=== PATIENT | male | born 1960 | race Caucasian/White ===

== ENCOUNTER 2020-04-05 23:52 | Inpatient (IN) | payer OTHER ==
--- NOTE | 2020-04-06 00:45 | PDOC ---
History of Present Illness - General Chief Complaint: Weakness Stated Complaint: SEIZURE Time Seen by Provider: 04/06/20 00:36 History Source: EMS, Family Exam Limitations: Intoxication - History of Present Illness Initial Comments: 04/06/20 00:45 Sanchez Ruiz is a 59M with PMH EtOH use disorder c/b hepatic disease, ? history of epilepsy, HTN, BIBA after being found down in the street. Patient is intoxicated and sleeping deeply at the time of the examination, unable to get PMH. Daughter at bedside, reports she has been estranged from her father for some time, but received a call that he was found down and came with him to the ED. Per daughter, patient has a longtime history of alcohol use with related liver disease, HTN, and possible history of epilepsy vs. withdrawal seizures. Last night saw him drinking beer alone in the park, helped him to get home. Today by standers reported patient was found down on the road acutely intoxicated, unwitnessed fall, EMS called to bring to ED for evaluation. Past History - Medical History Allergies/Adverse Reactions: Allergies Allergy/AdvReac Type Severity Reaction Status Date / Time No Known Allergies Allergy Verified 04/06/20 00:16 Home Medications: Ambulatory Orders NK [No Known Home Medication] 04/06/20 - Psycho-Social/Smoking History Smoking History: Never smoked Information on smoking cessation initiated: No - Substance Abuse Hx (Audit-C & DAST Scrn) How often the patient has a drink containing alcohol: Never Score: In Men: 4 or > Positive; In Women: 3 or > Positive: 0 Screen Result (Pos requires Nsg. Audit-10AR): Negative In the last yr the pt used illegal drug/Rx for NonMed reason: No Score: Yes response is considered Positive: 0 Screen Result (Positive result requires Nsg. DAST-10): Negative Review of Systems - Review of Systems Able to Perform ROS?: No (intoxicated) *Physical Exam - Vital Signs Last Vital Signs Temp Pulse Resp BP Pulse Ox 97.5 F L 81 19 102/78 96 04/06/20 00:00 04/06/20 00:00 04/06/20 00:00 04/06/20 00:00 04/06/20 00:00 - Physical Exam General Appearance: Yes: Nourished, Appropriately Dressed, Disheveled, Alcohol on Breath, Intoxicated, Obese, Other (sleeping in bed but periodically awakens and is belligerent) HEENT: positive: EOMI, DUANE, Symmetrical, Pharynx Normal, Other (NCAT). negative: Scleral Icterus (R), Scleral Icterus (L), Pharyngeal Erythema, Tonsillar Exudate, Tonsillar Erythema Neck: positive: Normal Thyroid, Supple. negative: Tender, Rigid, Decreased range of motion, Lymphadenopathy (R), Lymphadenopathy (L), Tender lateral, Tender midline Respiratory/Chest: positive: Lungs Clear, Normal Breath Sounds. negative: Chest Tender, Respiratory Distress, Accessory Muscle Use, Decreased Breath Sounds, Crackles, Rales, Rhonchi, Stridor, Wheezing Cardiovascular: positive: Regular Rhythm, Regular Rate. negative: Murmur Gastrointestinal/Abdominal: positive: Normal Bowel Sounds, Soft, Protuberent. negative: Tender, Organomegaly, Pulsatile Mass, Guarding, Rebound, Hernia Musculoskeletal: positive: Normal Inspection. negative: CVA Tenderness, Decreased Range of Motion, Vertebral Tenderness Extremity: positive: Normal Capillary Refill, Normal Inspection, Normal Range of Motion, Pelvis Stable. negative: Tender, Pedal Edema, Swelling, Calf Tenderness Integumentary: positive: Normal Color, Dry, Warm, Other (no external evidence of injury, bony deformity, or bruising) Neurologic: positive: Respond to painful stimul ED Treatment Course - LABORATORY CBC & Chemistry Diagram: 04/06/20 01:32 04/06/20 01:32 - RADIOLOGY Radiograph Interpretation: Dilan Sequeira MD wrote on Apr 06, 2020 at 04:41 AM: Referring Physician: SOUTH KATZ Patient Name: DANIELA TREVINO THIS IS A PRELIMINARY REPORT DATE OF SERVICE: 2020-04-06 03:47:40 IMAGES: [id number] EXAM: CERVICAL SPINE CT W/O CONTR HISTORY: Trauma COMPARISON: None. FINDINGS: There is no fracture, subluxation, prevertebral soft tissue swelling or significant degenerative changes. The lung apices are clear. IMPRESSION: No fracture. Dilan Sequeira MD wrote on Apr 06, 2020 at 05:09 AM: Referring Physician: SOUTH KATZ Patient Name: DANIELA TREVINO THIS IS A PRELIMINARY REPORT DATE OF SERVICE: 2020-04-06 03:52:58 IMAGES: [id number] EXAM: HEAD CT WITHOUT CONTRAST HISTORY: Trauma COMPARISON: None. FINDINGS: Evaluation limited in that the lower third of the brain in this skull base were not imaged secondary to patient combativeness. The ventricular system is midline and nondilated. The sulcal pattern is normal for the patient's age. There is no bleed, mass, extra-axial fluid collection or mass effect. No skull fracture or skull lesion is identified. The mastoid air cells are clear. There is mild bilateral ethmoid and left sphenoid sinus mucosal thickening without sinus air- fluid levels. IMPRESSION: Limited evaluation without evidence of acute pathology. Recommend reimaging the lower portion of the brain if clinically feasible. Dilan Sequeira MD wrote on Apr 06, 2020 at 05:40 AM: Referring Physician: SOUTH KATZ Patient Name: DANIELA TREVINO THIS IS A PRELIMINARY REPORT DATE OF SERVICE: 2020-04-06 05:20:25 IMAGES: [id number] EXAM: HEAD CT WITHOUT CONTRAST HISTORY: Trauma COMPARISON: None. FINDINGS: The ventricular system is midline and nondilated. The sulcal pattern is normal for the patient's age. There is no bleed, mass, extra-axial fluid collection or mass effect. No skull fracture or skull lesion is identified. The mastoid air cells are clear. Diffuse mild sinus mucosal thickening is noted without sinus air-fluid levels. IMPRESSION: No acute traumatic pathology. Mild sinus disease. Medical Decision Making - Medical Decision Making 04/06/20 00:45 Patient has known history of alcohol use disorder, hepatic pathology, HTN, now presents for having been found down outside by EMS, likely EtOH-induced unwitnessed fall vs. withdrawal seizure. Patient sleeps deeply but is maintaining airway, ambulatory when awake, in NAD. Ordering CMP/CBC/CP/UA/UC/UTOX/ECG/CXR/ETOH as well as CT head and c-spine for evaluation trauma s/p unwitnessed fall. Patient is clinically intoxicated at this time, will continue to monitor in ED with telemetry, will need admission to telemetry for unwitnessed fall and possible seizure. Daughter at bedside but estranged, patient lives alone, unsafe to be discharged home without evaluation. 04/06/20 01:44 Labs notable for: - Na 127, likely 2/2 daily ETOH/beer consumption, will replete with banana bag - EtOH 327, consistent with alcohol intoxication - remaining CMP WNL, no transaminitis - CP WNL ECG NSR with RBBB, HR 76, QTc 483, ? LAURA III Patient intermittently wakes up and is combative, then falls back asleep. Getting CT now 04/06/20 06:[address] head and c-spine. CT c-spine no fracture. CT head unable to visualize lower portions of brain due to patient movement in CT, recommends redo. Second CT head patient compliant with exam, no acute pathology noted on CT read. Contacting admitting team for tele admit for hyponatremia, reported seizure activity, and unwitnessed fall, too intoxicated to describe events prior. 04/06/20 06:57 Discussed case with admitting team, admit to tele under Dr. Barron. Discharge - Discharge Information Problems reviewed: Yes Clinical Impression/Diagnosis: Unwitnessed fall, Hyponatremia Alcohol intoxication Qualifiers: Complication of substance-induced condition: uncomplicated Qualified Code(s): F 10.920 - Alcohol use, unspecified with intoxication, uncomplicated Condition: Fair - Admission Yes - Follow up/Referral - Patient Discharge Instructions - Post Discharge Activity
--- NOTE | 2020-04-06 00:57 | PDOC ---
Documentation entered by Zuleyka Au SCRIBE, acting as scribe for Shireen Pedersen MD. Shireen Pedersen MD: This documentation has been prepared by the Talia daniels Sydney, SCRIBE, under my direction and personally reviewed by me in its entirety. I confirm that the documentation accurately reflects all work, treatment, procedures, and medical decision making performed by me. Attending Attestation - Resident Resident Name: Mauricio Arias - ED Attending Attestation I have performed the following: I have examined & evaluated the patient, The case was reviewed & discussed with the resident, I agree w/resident's findings & plan, Exceptions are as noted - HPI HPI: 04/06/20 01:03 Patient is a 59 year old male with a significant past medical history of alcoholism, lymphoma, chronic liver failure who presents to the ED via EMS with altered mental status. HPI is limited secondary to the patients present mental baseline. As per patients daughter, he has long-standing alcoholism and has recently been residing [facility], where she has had minimal contact with her father. She reports seeing the patient last night after he had reportedly been drinking all day. Daughter notes she received a call from her sister, stating the patient was found on the ground at a nearby park, prompting the request for EMS. Daughter reports he has had alcohol-related seizures in the past. Allergies: NKDA - Physicial Exam PE: 04/06/20 00:56 GENERAL: Well-appearing, well-nourished. No apparent distress. HEENT: Normocephalic, atraumatic. PERRL, EOM intact. CARDIOVASCULAR: Normal S1, S2. Regular rate and rhythm. PULMONARY: Clear to auscultation bilaterally. ABDOMEN: + turgid belly Soft, non-tender. EXTREMITIES: +bilateral pedal edema Normal ROM in all four extremities. SKIN: Warm, dry. No rash NEUROLOGICAL: + responsive to sternal rubs No focal neurological deficits - Medical Decision Making 04/06/20 01:10 this 59 yo male BIBA after being found unresponsive on the ground family member states he has long h/o alcoholism,liver problems and lymphoma plan ct scan head,c spine, ekg,etoh level, drug screen, cbc,comp, Discharge - Discharge Information Problems reviewed: Yes Clinical Impression/Diagnosis: Alcohol intoxication, Unwitnessed fall, Hyponatremia Condition: Improved Disposition: I.P. ALCOHOL/SUBS ABUSE REHAB - Follow up/Referral - Patient Discharge Instructions - Post Discharge Activity
[2020-04-06 01:44] LABS: BASO % 0.9 % (0-2.0); EOS % 6.9 % (0-4.5); HEMOGLOBIN 12.9 GM/dL (11.7-16.9); LYMPH % 48.3 % (8-40); MCH 32.2 pg (25.7-33.7); MCHC 34.8 g/dl (32.0-35.9); MEAN CELL VOLUME 92.4 fl (80-96); MEAN PLT VOLUME 6.9 fl (7.5-11.1); MONO % 6.6 % (3.8-10.2); NEUT % 37.3 % (42.8-82.8); PLATELET COUNT 223 K/MM3 (134-434); RBC 4.01 M/mm3 (4.00-5.60); RDW 13.7 % (11.9-15.9); WHITE BLOOD COUNT 6.3 K/mm3 (4.0-10.0)
[2020-04-06 02:06] LABS: INR 0.97 (0.83-1.09); PROTHROMBIN TIME (PATIENT) 11.5 SEC (9.7-13.0)
[2020-04-06 02:09] LABS: ACTIVATED PTT 30.9 SECONDS (25.2-36.5)
[2020-04-06 02:18] LABS: ALBUMIN 3.6 g/dl (3.4-5.0); BILIRUBIN,TOTAL 0.3 mg/dL (0.2-1); POTASSIUM 3.7 mmol/L (3.5-5.1)
[2020-04-06] MEDS ORDERED: FOLIC ACID INJECTION - 1 MG, THIAMINE HCL 100 MG, MULTIVIT INJECTION ADULT 10 ML in SOD... IVPB ONE (04:43)
--- NOTE | 2020-04-06 07:26 | HP ---
CHIEF COMPLAINT: loss of consciousness PCP: none HISTORY OF PRESENT ILLNESS: Pt is a 59 y/o male with ETOH use disorder with hx of seizures (years ago, not on meds), HTN, and ?BPH who was brought into the ED after being found on the ground in a park. He does not remember the events leading up to this, but he did state he drank more than his usual amount of beers yesterday. He did not have a particular reason why, though. He normally drinks a 6 pack daily, but he does not know how much he drank yesterday. He complains of focused right frontal/temporal head pain and shakiness. He also complains of central abdominal pain, and says he feels constipated. He denies auditory or visual hallucinations, fever, chills, dizziness, chest pain, shortness of breath, nausea, vomiting, and dysuria. History is somewhat limited as pt is intermittently cooperative. ER course was notable for: (1) CT head and c-spine showed no acute processes (2) Na 127, ETOH 325 (3) banana bag PAST MEDICAL HISTORY: ETOH use disorder with hx of seizures PAST SURGICAL HISTORY: none Social History: Smokinppd, unknown number of years Alcohol: 6 pack beer, daily Drugs: denies Family History: unable to obtain Allergies No Known Allergies Allergy (Verified 04/06/20 00:16) HOME MEDICATIONS: ?BPH meds REVIEW OF SYSTEMS see HPI PHYSICAL EXAMINATION Vital Signs - 24 hr 04/06/20 04/06/20 00:00 05:51 Temperature 97.5 F L Pulse Rate 81 Pulse Rate [ 86 Left] Respiratory 19 20 Rate Blood Pressure 102/78 Blood Pressure 104/99 [Right Arm] O2 Sat by Pulse 96 98 Oximetry (%) GENERAL: A&Ox3, in no acute distress. HEAD: Normal with no signs of trauma. EYES: PERRL, EOMI, sclera anicteric. EARS, NOSE, THROAT: Ears normal, nares patent, moist mucous membranes. NECK: Normal range of motion. LUNGS: B/l diffuse wheezing, no crackles. HEART: RRR, no murmur. ABDOMEN: Distended, NBS, mildly tender to palpation mid abdomen. MUSCULOSKELETAL: Normal range of motion at all joints. UPPER EXTREMITIES: Warm, well-perfused. No peripheral edema. LOWER EXTREMITIES: Warm, well-perfused. +1 pitting edema b/l feet. NEUROLOGICAL: Cranial nerves II-XII intact. Normal speech. PSYCHIATRIC: Intermittently cooperative. Good eye contact. Labile mood. SKIN: Warm, dry, normal turgor. Laboratory Results - last 24 hr 04/06/20 04/06/20 04/06/20 01:32 01:32 01:32 WBC 6.3 RBC 4.01 Hgb 12.9 Hct 37.0 MCV 92.4 MCH 32.2 MCHC 34.8 RDW 13.7 Plt Count 223 MPV 6.9 L Absolute Neuts (auto) 2.3 Neutrophils % 37.3 L Lymphocytes % 48.3 H Monocytes % 6.6 Eosinophils % 6.9 H Basophils % 0.9 Nucleated RBC % 0 PT with INR 11.50 INR 0.97 PTT (Actin FS) 30.9 Sodium 127 L Potassium 3.7 Chloride 95 L Carbon Dioxide 20 L Anion Gap 12 BUN 9.9 Creatinine 1.0 Est GFR (CKD-EPI)AfAm 95.06 Est GFR (CKD-EPI)NonAf 82.02 Random Glucose 121 H Calcium 8.0 L Phosphorus 3.9 Magnesium 2.2 Total Bilirubin 0.3 AST 24 ALT 26 Alkaline Phosphatase 98 Creatine Kinase 270 Creatine Kinase Index 0.7 CK-MB (CK-2) 1.9 Troponin I < 0.02 B-Natriuretic Peptide 44.9 Total Protein 7.0 Albumin 3.6 Lipase 140 Alcohol, Quantitative 325 H ASSESSMENT/PLAN: Pt is a 59 y/o male with ETOH use disorder with hx of seizures (years ago, not on meds), ?hepatic pathology, HTN, and ?BPH who was brought into the ED after being found on the ground [place] a park. Pt is admitted for loss of consciousness likely 2/2 ETOH intoxication. #loss of consciousness 2/2 acute ETOH intoxication -syncope from hypotension after dehydration with ETOH use or cardiac cause vs ETOH-related seizure vs unlikely CVA -ETOH level 325 -CIWA- 2 -[facility] detox protocol -CT head and c-spine negative for acute processes -EKG-RBBB, QTc 483, possible inferior infarct, troponin negative x1 -repeat trop -continue IVF -diet after bedside swallow -cardiology consult -echo -carotid dopplers #moderate hyponatremia likely 2/2 chronic ETOH use (?beer potomania) -likely chronic hyponatremia -Na 127 -no KENIA -avoid over-correcting more than 6 points in 24 hours because of risk of osmotic demyelination syndrome -being given banana bag -will switch to NS after banana bag x1 -thiamine to avoid Wernicke's encephalopathy -folate -MVI -nephrology consult -poor f/u- will order A1C, lipid panel, TSH, hep panel, and HIV (if consents) #constipation -Miralax daily #wheezing likely 2/2 COPD from tobacco use -CXR does not show anything acute, shows cardiomegaly -pt does not complain of pulm symptoms -can give albuterol if pt does begin to be symptomatic -needs counseling on cessation once sober -consider pulm referral on discharge #unknown hepatic pathology -possibly cirrhosis? -LFTs normal -consider liver U/S -may need outpatient follow up depending on U/S or if labs worsen #HTN -unsure medication pt takes -normotensive at this time #?BPH -pt states takes urinary meds -reconcile meds and restart as needed, has good urine output at this time DVT Ppx Lovenox FEN NS 125mL/hr monitor Na in afternoon regular diet after bedside swallow eval dispo med/surg FULL CODE I tried to reconcile meds, but pt cannot state what pharmacy he uses. Family Medical History Family History: Unable to Obtain Visit type - Emergency Visit Emergency Visit: Yes ED Registration Date: 04/06/20 Care time: The patient presented to the Emergency Department on the above date and was hospitalized for further evaluation of their emergent condition. - New Patient This patient is new to me today: Yes Date on this admission: 04/06/20 - Critical Care Critical Care patient: No ATTENDING PHYSICIAN STATEMENT I saw and evaluated the patient. I reviewed the resident's note and discussed the case with the resident. I agree with the resident's findings and plan as documented. SUBJECTIVE: OBJECTIVE: ASSESSMENT AND PLAN:
[2020-04-06 08:55] LABS: ALK PHOS 100 U/L (45-117); ANION GAP 14 MMOL/L (8-16); BLOOD UREA NITROGEN 10.5 mg/dL (7-18); CALCIUM 8.1 mg/dL (8.5-10.1); CHLORIDE 96 mmol/L (98-107); CO2 17 mmol/L (21-32); CREATININE 1.1 mg/dL (0.55-1.3); GLUCOSE,RANDOM 118 mg/dL (74-106); LIPASE 122 U/L (73-393); MAGNESIUM 2.1 mg/dL (1.8-2.4); SGOT/AST 28 U/L (15-37); SGPT/ALT 27 U/L (13-61); SODIUM 128 mmol/L (136-145)
--- NOTE | 2020-04-06 09:10 | EKG ---
Test Reason : Blood Pressure : / mmHG Vent. Rate : 076 BPM Atrial Rate : 076 BPM P-R Int : 152 ms QRS Dur : 168 ms QT Int : 430 ms P-R-T Axes : 045 067 029 degrees QTc Int : 483 ms NORMAL SINUS RHYTHM RIGHT BUNDLE BRANCH BLOCK Possible inferior infarct ABNORMAL ECG NO PREVIOUS ECGS AVAILABLE Confirmed by MD JOSE, SHEILA ([id number]) on 04/06/2020 9:10:22 AM Referred By: Confirmed By:SHEILA GARCIA MD
[2020-04-06 09:20] VITALS: BMI 28.3
[2020-04-06] MEDS ORDERED: POLYETHYLENE GLYCOL 3350 119 GM BTL PO SCH (10:00)
[2020-04-06] MEDS ORDERED: ENOXAPARIN NA (PORCINE) 40 MG/0.4 ML DISP.SYRIN SQ SCH (10:00)
[2020-04-06 10:37] LABS: PH,URINE 5.5 (5.0-8.0); URINE APPEARANCE CLEAR; URINE BILIRUBIN NEGATIVE (NEGATIVE); URINE COLOR YELLOW; URINE GLUCOSE (UA) NEGATIVE (NEGATIVE); URINE KETONE NEGATIVE (NEGATIVE); URINE LEUK ESTERASE NEGATIVE (NEGATIVE); URINE NITRITE NEGATIVE (NEGATIVE); URINE PROTEIN NEGATIVE (NEGATIVE); URINE UROBILINOGEN 0.2 mg/dL (0.2-1.0)
[2020-04-06 10:39] LABS: COCAINE, UR NEGATIVE ng/ml (CUTOFF=300); OPIATES, URI NEGATIVE ng/ml (CUTOFF=300); PHENCYCLIDINE,URINE NEGATIVE ng/ml (CUTOFF=25)
[2020-04-06] MEDS ORDERED: MULTIVITAMINS (DAILY MVI) TABLET (FP) ONE (10:40)
[2020-04-06] MEDS ORDERED: FOLIC ACID 1 MG TABLET (FP) ONE (10:41)
[2020-04-06] MEDS ORDERED: THIAMINE HCL 200 MG/2 ML VIAL ONE (10:41)
[2020-04-06] MEDS ORDERED: ENOXAPARIN NA (PORCINE) 40 MG/0.4 ML DISP.SYRIN SQ ONE (10:41)
[2020-04-06 10:47] LABS: METHADONE, UR NEGATIVE ng/ml (CUTOFF=300); URINE AMPHETAMINES NEGATIVE ng/ml (CUTOFF=500); URINE BARBITURATES NEGATIVE ng/ml (CUTOFF=200); URINE BENZODIAZEPINES NEGATIVE ng/ml (CUTOFF=200)
[2020-04-06] MEDS ORDERED: chlordiazePOXIDE HCL 10 MG CAPSULE PO PRN ×2 (11:33→14:31)
[2020-04-06] MEDS ORDERED: PANTOPRAZOLE SODIUM 40 MG VIAL IVPUSH SCH (11:45)
--- NOTE | 2020-04-06 12:38 | CON.CARD ---
Consult Consult Specialty:: Cardiology Referred by:: Beatrice Reason for Consultation:: Syncope - History of Present Illness Chief Complaint: Found on the ground by EMS. History of Present Illness: The patient is a 59-year-old man, smoker, alcoholic, liver disease, lymphoma, who was found on the floor intoxicated and brought to the emergency room. The patient is currently waiting for an echocardiogram. He is sitting comfortably on the wheelchair. Denied chest pains or shortness of breath. No palpitations. Also denied fever, chills, cough, GI problems. No clinical evidence of coronavirus infection. The patient had no recollections of the event. He just remember drinking a great deal of alcohol. He admitted to 12 cans of beer Prior to passing out. - History Source History Provided By: Patient, Medical Record Limitations to Obtaining History: Intoxication - Past Medical History Cardio/Vascular: Yes: HTN - Alcohol/Substance Use Hx Alcohol Use: Yes Number of Drinks Daily: 12 History of Substance Use: reports: None - Smoking History Smoking history: Current every day smoker Home Medications - Allergies Allergies/Adverse Reactions: Allergies Allergy/AdvReac Type Severity Reaction Status Date / Time No Known Allergies Allergy Verified 04/06/20 00:16 - Home Medications Home Medications: Ambulatory Orders NK [No Known Home Medication] 04/06/20 Review of Systems - Review of Systems Constitutional: reports: No Symptoms Eyes: reports: No Symptoms HENT: reports: No Symptoms Neck: reports: No Symptoms Cardiovascular: reports: No Symptoms Respiratory: reports: No Symptoms Gastrointestinal: reports: No Symptoms Genitourinary: reports: No Symptoms Breasts: reports: No Symptoms Reported Musculoskeletal: reports: No Symptoms Integumentary: reports: No Symptoms Neurological: reports: No Symptoms Endocrine: reports: No Symptoms Hematology/Lymphatic: reports: No Symptoms Psychiatric: reports: No Symptoms Vital Signs: Vital Signs Temperature 97.9 F 04/06/20 11:24 Pulse Rate 79 04/06/20 11:24 Respiratory Rate 18 04/06/20 11:24 Blood Pressure 130/82 04/06/20 11:24 O2 Sat by Pulse Oximetry (%) 96 04/06/20 11:24 Constitutional: Yes: Well Nourished, No Distress, Calm Eyes: Yes: WNL, Conjunctiva Clear, EOM Intact HENT: Yes: WNL, Atraumatic, Normocephalic Neck: Yes: WNL, Supple, Trachea Midline Respiratory: Yes: WNL, Regular, CTA Bilaterally Gastrointestinal: Yes: WNL, Normal Bowel Sounds, Soft Renal/: Yes: WNL Cardiovascular: Yes: WNL, Regular Rate and Rhythm JVD: No Carotid Bruit: No PMI: Non-Displaced Heart Sounds: Yes: S1, S2 Murmur: Yes: Systolic Murmur, Grade 2 Musculoskeletal: Yes: WNL Extremities: Yes: WNL Edema: No Peripheral Pulses WNL: Yes Integumentary: Yes: WNL, Tenting Neurological: Yes: WNL, Alert, Oriented ...Motor Strength: WNL Psychiatric: Yes: WNL, Alert, Oriented - Other Data Labs, Other Data: CBC, BMP 04/06/20 01:32 04/06/20 01:32 INR, PTT INR 0.97 (0.83-1.09) 04/06/20 01:32 Troponin, BNP 04/06/20 01:32 Troponin I < 0.02 B-Natriuretic Peptide 44.0 Troponin, BNP 04/06/20 01:32 Troponin I < 0.02 B-Natriuretic Peptide 44.0 Assessment/Plan The patient is a 59-year-old man, smoker, alcoholic, liver disease, lymphoma, who was found on the floor intoxicated and brought to the emergency room. The patient is currently waiting for an echocardiogram. He is sitting comfortably on the wheelchair. Denied chest pains or shortness of breath. No palpitations. Also denied fever, chills, cough, GI problems. No clinical evidence of coronavirus infection. The patient had no recollections of the event. He just remember drinking a great deal of alcohol. He admitted to 12 cans of beer Prior to passing out. There is no evidence of ischemia nor acute coronary syndrome. No acute ECG changes. The patient is in sinus rhythm. No CHF. Echocardiogram is pending. No need for cardiac monitoring in this setting. The patient was simply intoxicated from alcohol. He is stable and symptom-free at the moment. Continue home medications. We will follow echo results. We will decide on further work-up once the echo findings are available. Watch for alcohol withdrawal.
[2020-04-06] MEDS ORDERED: chlordiazePOXIDE HCL 25 MG CAPSULE PO SCH (13:00)
[2020-04-06] MEDS ORDERED: SODIUM CHLORIDE 1,000 ML IV SCH (13:00)
--- NOTE | 2020-04-06 13:25 | ECHO ---
Version: 1 Name: EVA STANLEY Exam: Adult Echocardiogram Study Date: 04/06/2020, 12:40 PM Age: 59 Years MMode/2D Measurements & Calculations IVSd: 1.00 cm LVIDs: 3.6 cm LVIDd: 5.6 cm LVPWd: 0.95 cm LAV (MOD-bp): 56.0 ml ACS: 1.95 cm Ao root diam: 3.3 cm LVOT diam: 2.29 cm LA dimension: 3.7 cm Doppler Measurements & Calculations MV E max sergio: 72.6 cm/sec Med E/e': 12.6 MV A max sergio: 78.5 cm/sec Med Peak E' Sergio: 5.8 cm/sec MV E/A: 0.92 Lat E/e': 5.8 Lat Peak E' Sergio: 12.6 cm/sec MR max P.8 mmHg Ao max P.9 mmHg FREDRICK(I,D): 3.1 cm Ao mean P.7 mmHg LV V1 mean: 58.7 cm/sec Ao V2 max: 131.7 cm/sec LV V1 mean P.55 mmHg PI end-d sergio: 111.3 cm/sec TR max sergio: 246.6 cm/sec TR max P.3 mmHg Left Ventricle The left ventricular size, thickness and function are normal. Ejection Fraction = 65%. The transmitr al spectral Doppler flow pattern is suggestive of impaired LV relaxation. Right Ventricle The right ventricle is normal in size and function. Atria Normal left and right atrial size and function. Mitral Valve The mitral valve is grossly normal. There is mild mitral regurgitation. Tricuspid Valve The tricuspid valve is normal. There is mild tricuspid regurgitation. Aortic Valve The aortic valve is normal in structure and function. No aortic regurgitation is present. Pulmonic Valve The pulmonic valve is not well seen, but is grossly normal. Great Vessels The aortic root is normal size. Normal aortic arch, descending and ascending aorta. Pericardium/Pleura There is no pericardial effusion. Summary Statements The left ventricular size, thickness and function are normal Ejection Fraction = 65%. The transmitral spectral Doppler flow pattern is suggestive of impaired LV relaxation. The right ventricle is normal in size and function. Normal left and right atrial size and function. The mitral valve is grossly normal. There is mild mitral regurgitation. The tricuspid valve is normal. There is mild tricuspid regurgitation. The aortic valve is normal in structure and function. No aortic regurgitation is present. The pulmonic valve is not well seen, but is grossly normal. The aortic root is normal size. Normal aortic arch, descending and ascending aorta There is no pericardial effusion. Dillon Head 04/06/2020, 1:25 PM Ordering Physician: Jennifer Rogers Referring Physician: JENNFIER ROGERS Performed By: Jenny Heredia
--- NOTE | 2020-04-06 13:29 | CONSULT ---
Consult Consult Specialty:: Nephrology Reason for Consultation:: hyponatremia - History of Present Illness Chief Complaint: found in the ground in the park History of Present Illness: Pt is a 59 year old male with pmhx of etoh abuse, htn, seizure and bph who was brought in after being found on the ground in the park. He has been actively drinking. I was called to evaluate him for hyponatremia. He is hungry and has appetite. He is making urine. He drinks natacha beer. He denies fevers or chills. He is now awake and alert. - History Source History Provided By: Patient - Past Medical History Cardio/Vascular: Yes: HTN - Alcohol/Substance Use Hx Alcohol Use: Yes Number of Drinks Daily: 12 History of Substance Use: reports: None - Smoking History Smoking history: Never smoked Home Medications - Allergies Allergies/Adverse Reactions: Allergies Allergy/AdvReac Type Severity Reaction Status Date / Time No Known Allergies Allergy Verified 04/06/20 00:16 - Home Medications Home Medications: Ambulatory Orders NK [No Known Home Medication] 04/06/20 Family Medical History Family History: Denies Review of Systems - Review of Systems Constitutional: reports: No Symptoms Eyes: reports: No Symptoms HENT: reports: No Symptoms Neck: reports: No Symptoms Cardiovascular: reports: No Symptoms Respiratory: reports: No Symptoms Gastrointestinal: reports: No Symptoms Genitourinary: reports: No Symptoms Musculoskeletal: reports: No Symptoms Integumentary: reports: No Symptoms Neurological: reports: No Symptoms Endocrine: reports: No Symptoms Hematology/Lymphatic: reports: No Symptoms Psychiatric: reports: No Symptoms Physical Exam Vital Signs: Vital Signs Temperature 97.9 F 04/06/20 11:24 Pulse Rate 79 04/06/20 11:24 Respiratory Rate 18 04/06/20 11:24 Blood Pressure 130/82 04/06/20 11:24 O2 Sat by Pulse Oximetry (%) 96 04/06/20 11:24 Constitutional: Yes: Calm Eyes: Yes: Conjunctiva Clear HENT: Yes: Atraumatic Neck: Yes: Supple Cardiovascular: Yes: S1, S2 Respiratory: Yes: CTA Bilaterally Gastrointestinal: Yes: Soft Renal/: Yes: WNL Musculoskeletal: Yes: WNL Edema: No Neurological: Yes: Oriented Psychiatric: Yes: Oriented Labs: CBC, BMP 04/06/20 01:32 04/06/20 01:32 Imaging - Results Chest X-ray: Report Reviewed Problem List - Problems (1) Alcohol intoxication Code(s): F10.929 - ALCOHOL USE, UNSPECIFIED WITH INTOXICATION, UNSPECIFIED Qualifiers: Complication of substance-induced condition: uncomplicated Qualified Code(s): F10.920 - Alcohol use, unspecified with intoxication, uncomplicated (2) Hyponatremia Code(s): E87.1 - HYPO-OSMOLALITY AND HYPONATREMIA Assessment/Plan Current Medications Generic Name Dose Route Start Last Admin Trade Name Freq PRN Reason Stop Dose Admin Chlordiazepoxide HCl 25 mg 04/06/20 13:00 Librium - PO 04/07/20 21:01 Q8H ANDRY Chlordiazepoxide HCl 10 mg 04/09/20 00:00 Librium - PO 04/09/20 23:59 Q12H PRN Signs/symptoms of Withdrawal Chlordiazepoxide HCl 10 mg 04/06/20 11:33 Librium - PO 04/08/20 23:59 Q8H PRN Signs/symptoms of Withdrawal Chlordiazepoxide HCl 15 mg 04/08/20 05:00 Librium - PO 04/08/20 21:01 Q8H ANDRY Chlordiazepoxide HCl 10 mg 04/09/20 05:00 Librium - PO 04/09/20 21:01 Q8H ANDRY Chlordiazepoxide HCl 10 mg 04/10/20 05:00 Librium - PO 04/10/20 05:01 ONCE ONE Enoxaparin Sodium 40 mg 04/06/20 10:00 04/06/20 10:30 Lovenox - SQ 40 mg DAILY [facility] Administration Folic Acid 1 mg 04/07/20 10:00 Folic Acid - PO DAILY [facility] Sodium Chloride 1,000 mls @ 125 mls/hr 04/06/20 13:00 Normal Saline - IV ASDIR [facility] Multivitamins/Minerals/Vitamin C 1 tab 04/07/20 10:00 Tab-A-Vit - PO DAILY [facility] Pantoprazole Sodium 40 mg 04/06/20 11:45 Protonix Iv IVPUSH DAILY [facility] Polyethylene Glycol 17 gm 04/06/20 10:00 04/06/20 10:30 Miralax (For Daily Use) - PO Not Given DAILY [facility] Thiamine HCl 200 mg 04/07/20 10:00 Vitamin B1 Injection - IVPB 04/11/20 09:59 DAILY [facility] Laboratory Tests 04/06/20 04/06/20 04/06/20 01:32 01:32 10:00 WBC 6.3 Hgb 12.9 Plt Count 223 Creatine Kinase 272 B-Natriuretic Peptide 44.0 Ur Specific [place] 1.004 L Urine Protein Negative Urine Blood Negative Alcohol, Quantitative 320.6 H Impression 1. hyponatremia 2. etoh abuse 3. htn 4. s/p fall Plan - urine sg is low, pt autocorrecting - repeat bmp to asses sodium - he has been off of fluids as he has been in testing - pt asking for food, no objection to starting diet - cont detox - will trend sodium
[2020-04-06] MEDS ORDERED: PANTOPRAZOLE SODIUM 40 MG/100 ML BAG IVPB ONE (13:32)
--- NOTE | 2020-04-06 13:53 | CONSULT ---
Consult Detox [facility] Reason for Current Admission/Consult: Alcohol use disorder, intoxication Referred by:: Dr. Rogers - History History of Present Illness: HISTORY OF PRESENT ILLNESS: Pt is a 59 y/o male with ETOH use disorder with hx of seizures (years ago, not on meds), HTN, and ?BPH who was brought into the ED after being found on the ground in a park. He does not remember the events leading up to this, but he did state he drank more than his usual amount of beers yesterday. He did not have a particular reason why, though. He normally drinks a 6 pack daily, but he does not know how much he drank yesterday. He complains of focused right frontal/t emporal head pain and shakiness. He also complains of central abdominal pain, and says he feels constipated. He denies auditory or visual hallucinations, fever, chills, dizziness, chest pain, shortness of breath, nausea, vomiting, and dysuria. History is somewhat limited as pt is intermittently cooperative. ER course was notable for: (1) CT head and c-spine showed no acute processes (2) Na 127, ETOH 325 (3) banana bag PAST MEDICAL HISTORY: ETOH use disorder with hx of seizures PAST SURGICAL HISTORY: none Social History: Smokinppd, unknown number of years Alcohol: 6 pack beer, daily Drugs: denies Family History: unable to obtain Pt was seen by Cardiology, notes indicate pt drank 12 beer prior to LOC. Echo pending. Pt has consult note pending from Nephrology CIWA: 2 Home Medications Medication Instructions Recorded NK [No Known Home Medication] 04/06/20 Laboratory Tests 04/06/20 04/06/20 04/06/20 01:32 01:32 01:32 WBC 6.3 RBC 4.01 Hgb 12.9 Hct 37.0 MCV 92.4 MCH 32.2 MCHC 34.8 RDW 13.7 Plt Count 223 MPV 6.9 L Absolute Neuts (auto) 2.3 Neutrophils % 37.3 L Lymphocytes % 48.3 H Monocytes % 6.6 Eosinophils % 6.9 H Basophils % 0.9 Nucleated RBC % 0 PT with INR 11.50 INR 0.97 PTT (Actin FS) 30.9 Sodium 128 L Potassium 3.7 Chloride 96 L Carbon Dioxide 17 L Anion Gap 14 BUN 10.5 Creatinine 1.1 Est GFR (CKD-EPI)AfAm 84.71 Est GFR (CKD-EPI)NonAf 73.09 Random Glucose 118 H Calcium 8.1 L Phosphorus 4.0 Magnesium 2.1 Total Bilirubin 0.3 AST 28 ALT 27 Alkaline Phosphatase 100 Creatine Kinase 272 Creatine Kinase Index Cancelled CK-MB (CK-2) Cancelled Troponin I < 0.02 B-Natriuretic Peptide 44.0 Total Protein 7.0 Albumin 3.6 Lipase 122 Urine Color Urine Appearance Urine pH Ur Specific [place] Urine Protein Urine Glucose (UA) Urine Ketones Urine Blood Urine Nitrite Urine Bilirubin Urine Urobilinogen Ur Leukocyte Esterase Opiates Screen Methadone Screen Barbiturate Screen Phencyclidine Screen Ur Amphetamines Screen MDMA (Ecstasy) Screen Benzodiazepines Screen Cocaine Screen U Marijuana (THC) Screen Alcohol, Quantitative 320.6 H 04/06/20 04/06/20 04/06/20 01:32 10:00 10:00 WBC RBC Hgb Hct MCV MCH MCHC RDW Plt Count MPV Absolute Neuts (auto) Neutrophils % Lymphocytes % Monocytes % Eosinophils % Basophils % Nucleated RBC % PT with INR INR PTT (Actin FS) Sodium Potassium Chloride Carbon Dioxide Anion Gap BUN Creatinine Est GFR (CKD-EPI)AfAm Est GFR (CKD-EPI)NonAf Random Glucose Calcium Phosphorus Magnesium Total Bilirubin AST ALT Alkaline Phosphatase Creatine Kinase Creatine Kinase Index Cancelled CK-MB (CK-2) Cancelled Troponin I B-Natriuretic Peptide Total Protein Albumin Lipase Urine Color Yellow Urine Appearance Clear Urine pH 5.5 Ur Specific [place] 1.004 L Urine Protein Negative Urine Glucose (UA) Negative Urine Ketones Negative Urine Blood Negative Urine Nitrite Negative Urine Bilirubin Negative Urine Urobilinogen 0.2 Ur Leukocyte Esterase Negative Opiates Screen Negative Methadone Screen Negative Barbiturate Screen Negative Phencyclidine Screen Negative Ur Amphetamines Screen Negative MDMA (Ecstasy) Screen Negative Benzodiazepines Screen Negative Cocaine Screen Negative U Marijuana (THC) Screen Negative Alcohol, Quantitative 04/06/20 12:00 WBC RBC Hgb Hct MCV MCH MCHC RDW Plt Count MPV Absolute Neuts (auto) Neutrophils % Lymphocytes % Monocytes % Eosinophils % Basophils % Nucleated RBC % PT with INR INR PTT (Actin FS) Sodium Potassium Chloride Carbon Dioxide Anion Gap BUN Creatinine Est GFR (CKD-EPI)AfAm Est GFR (CKD-EPI)NonAf Random Glucose Calcium Phosphorus Magnesium Total Bilirubin AST ALT Alkaline Phosphatase Creatine Kinase Creatine Kinase Index CK-MB (CK-2) Troponin I < 0.02 B-Natriuretic Peptide Total Protein Albumin Lipase Urine Color Urine Appearance Urine pH Ur Specific [place] Urine Protein Urine Glucose (UA) Urine Ketones Urine Blood Urine Nitrite Urine Bilirubin Urine Urobilinogen Ur Leukocyte Esterase Opiates Screen Methadone Screen Barbiturate Screen Phencyclidine Screen Ur Amphetamines Screen MDMA (Ecstasy) Screen Benzodiazepines Screen Cocaine Screen U Marijuana (THC) Screen Alcohol, Quantitative Home Medication List Medication Instructions Recorded Confirmed Type NK [No Known Home Medication] 04/06/20 04/06/20 History Active Medications Generic Name Dose Route Start Last Admin Trade Name Freq PRN Reason Stop Dose Admin Chlordiazepoxide HCl 25 mg 04/06/20 13:00 04/06/20 13:43 Librium - PO 04/07/20 21:01 Not Given Q8H ANDRY Chlordiazepoxide HCl 10 mg 04/09/20 00:00 Librium - PO 04/09/20 23:59 Q12H PRN Signs/symptoms of Withdrawal Chlordiazepoxide HCl 10 mg 04/06/20 11:33 Librium - PO 04/08/20 23:59 Q8H PRN Signs/symptoms of Withdrawal Chlordiazepoxide HCl 15 mg 04/08/20 05:00 Librium - PO 04/08/20 21:01 Q8H ANDRY Chlordiazepoxide HCl 10 mg 04/09/20 05:00 Librium - PO 04/09/20 21:01 Q8H ANDRY Chlordiazepoxide HCl 10 mg 04/10/20 05:00 Librium - PO 04/10/20 05:01 ONCE ONE Enoxaparin Sodium 40 mg 04/06/20 10:00 04/06/20 10:30 Lovenox - SQ 40 mg DAILY [facility] Administration Folic Acid 1 mg 04/07/20 10:00 Folic Acid - PO DAILY [facility] Multivitamins/Minerals/Vitamin C 1 tab 04/07/20 10:00 Tab-A-Vit - PO DAILY [facility] Pantoprazole Sodium 40 mg 04/06/20 11:45 04/06/20 13:42 Protonix Iv IVPUSH 40 mg DAILY [facility] Administration Polyethylene Glycol 17 gm 04/06/20 10:00 04/06/20 10:30 Miralax (For Daily Use) - PO Not Given DAILY [facility] Thiamine HCl 200 mg 04/07/20 10:00 Vitamin B1 Injection - IVPB 04/11/20 09:59 DAILY [facility] Vital Signs Temperature 98.6 F 04/06/20 13:32 Pulse Rate 70 04/06/20 13:32 Respiratory Rate 18 04/06/20 13:32 Blood Pressure 124/80 04/06/20 13:32 O2 Sat by Pulse Oximetry (%) 100 04/06/20 13:32 - History Source History Provided By: Medical Record - Alcohol/Substance Use Hx Alcohol Use: Yes - Past Medical History Cardio/Vascular: Yes: HTN Assessment Plan - Diagnosis (1) Alcohol intoxication Status: Acute Qualifiers: Complication of substance-induced condition: uncomplicated Qualified Code(s): F10.920 - Alcohol use, unspecified with intoxication, uncomplicated (2) Nicotine dependence Status: Acute Qualifiers: Nicotine product type: cigarettes Substance use status: uncomplicated Qualified Code(s): F17.210 - Nicotine dependence, cigarettes, uncomplicated - Plan Plan: 1. Pt with hx of alcohol use disorder, found down in a park, admits to drinking 12 beers prior to LOC. Workup since admission has revealed a nomral CT of head and C spine, normal troponin, mild hyponatremia 2. Nicotine dependence Plan 1. continue Librium detox protocol 2. start Nicotine patch, 21 mg daily - Medication Detox Regimen/Protocol: Librium
[2020-04-06] MEDS: NICOTINE 21 MG/24 HOURS TOPICAL PATCH TD SCH (14:54)
[2020-04-06 16:12] LABS: ALBUMIN 3.7 g/dl (3.4-5.0); BILIRUBIN,TOTAL 0.4 mg/dL (0.2-1); BLOOD UREA NITROGEN 9.2 mg/dL (7-18); CALCIUM 8.5 mg/dL (8.5-10.1); CREATININE 0.8 mg/dL (0.55-1.3); MAGNESIUM 2.3 mg/dL (1.8-2.4); PHOSPHOROUS 3.2 mg/dL (2.5-4.9); POTASSIUM 4.6 mmol/L (3.5-5.1); TOT PROT 7.3 g/dl (6.4-8.2)
[2020-04-06] MEDS ORDERED: chlordiazePOXIDE HCL 25 MG CAPSULE PO ONE (17:31)
[2020-04-06] MEDS: chlordiazePOXIDE HCL 25 MG CAPSULE PO SCH (21:12)
[2020-04-07] MEDS: chlordiazePOXIDE HCL 25 MG CAPSULE PO SCH ×3 (05:12→21:11)
[2020-04-07 08:59] LABS: BASO % 0.6 % (0-2.0); EOS % 6.4 % (0-4.5); HEMATOCRIT 38.6 % (35.4-49); HEMOGLOBIN 13.1 GM/dL (11.7-16.9); LYMPH % 21.7 % (8-40); MCH 31.1 pg (25.7-33.7); MEAN CELL VOLUME 91.6 fl (80-96); MEAN PLT VOLUME 7.3 fl (7.5-11.1); MONO % 11.2 % (3.8-10.2); NEUT % 60.1 % (42.8-82.8); PLATELET COUNT 216 K/MM3 (134-434); RBC 4.21 M/mm3 (4.00-5.60); WHITE BLOOD COUNT 6.8 K/mm3 (4.0-10.0)
[2020-04-07 09:26] LABS: ALBUMIN 3.4 g/dl (3.4-5.0); BILIRUBIN,TOTAL 0.6 mg/dL (0.2-1); BLOOD UREA NITROGEN 11.8 mg/dL (7-18); CALCIUM 8.5 mg/dL (8.5-10.1); CHOLESTEROL 204 mg/dL (50-200); CREATININE 0.9 mg/dL (0.55-1.3); HDL CHOLESTEROL 43 mg/dL (40-60); LDL CHOLESTEROL (ONLY SJRH) 122 mg/dL (5-100); MAGNESIUM 2.2 mg/dL (1.8-2.4); POTASSIUM 4.2 mmol/L (3.5-5.1); TOT PROT 6.6 g/dl (6.4-8.2); TRIGLYCERIDES 327 mg/dL (0-150)
[2020-04-07] MEDS ORDERED: FOLIC ACID 1 MG TABLET (FP) PO SCH (10:00)
[2020-04-07] MEDS ORDERED: THIAMINE HCL 200 MG/2 ML VIAL IVPB SCH (10:00)
[2020-04-07] MEDS ORDERED: MULTIVITAMINS (DAILY MVI) TABLET (FP) PO SCH (10:00)
[2020-04-07] MEDS: FOLIC ACID 1 MG TABLET (FP) PO SCH (10:58)
[2020-04-07] MEDS: MULTIVITAMINS (DAILY MVI) TABLET (FP) PO SCH (10:58)
[2020-04-07] MEDS: THIAMINE HCL 200 MG/2 ML VIAL IVPB SCH (10:59)
[2020-04-07] MEDS ORDERED: DEXTROSE 5%-WATER - 1,000 ML IV SCH (11:00)
[2020-04-07] MEDS: PANTOPRAZOLE SODIUM 40 MG VIAL IVPUSH SCH (11:00)
[2020-04-07] MEDS: ENOXAPARIN NA (PORCINE) 40 MG/0.4 ML DISP.SYRIN SQ SCH (11:01)
[2020-04-07] MEDS: NICOTINE 21 MG/24 HOURS TOPICAL PATCH TD SCH (11:03)
[2020-04-07] MEDS: POLYETHYLENE GLYCOL 3350 119 GM BTL PO SCH (11:57)
[2020-04-07] MEDS: DEXTROSE 5%-WATER - 1,000 ML IV SCH (11:58)
--- NOTE | 2020-04-07 14:05 | PN ---
Teaching Attending Note Name of Resident: Jennifer Rogers ATTENDING PHYSICIAN STATEMENT I saw and evaluated the patient. I reviewed the resident's note and discussed the case with the resident. I agree with the resident's findings and plan as documented. SUBJECTIVE: Patient seen and examined at bedside, endorses he was "taking a nap" in the park, does not remember if he actually syncopized, drank a 6 pack the night before, only takes meds at home for "blood pressure" not sure which one, admitted for volume depletion 2/2 Etoh intoxication. OBJECTIVE: GENERAL: A&Ox3, in no acute distress, answering to questions HEAD: Normal with no signs of trauma. EYES: PERRL, EOMI, sclera anicteric. EARS, NOSE, THROAT: Ears normal, nares patent, moist mucous membranes. NECK: Normal range of motion. LUNGS: B/l diffuse wheezing, no crackles. HEART: RRR, no murmur. ABDOMEN: Distended, NBS, mildly tender to palpation mid abdomen. MUSCULOSKELETAL: Normal range of motion at all joints. UPPER EXTREMITIES: Warm, well-perfused. No peripheral edema. LOWER EXTREMITIES: Warm, well-perfused. +1 pitting edema b/l feet. NEUROLOGICAL: Cranial nerves II-XII intact. Normal speech. PSYCHIATRIC: Intermittently cooperative. Good eye contact. Labile mood. SKIN: Warm, dry, normal turgor. Vital Signs (72 hours) 04/06/20 04/06/20 04/06/20 00:00 05:51 11:24 Temperature 97.5 F L 97.9 F Pulse Rate 81 Pulse Rate [ 86 79 Left] Respiratory 19 20 18 Rate Blood Pressure 102/78 Blood Pressure 104/99 130/82 [Right Arm] O2 Sat by Pulse 96 98 96 Oximetry (%) 04/06/20 04/06/20 04/06/20 13:32 16:00 16:08 Temperature 98.6 F 98.6 F Pulse Rate 75 Pulse Rate [ 70 Left] Respiratory 18 18 Rate Blood Pressure 149/83 Blood Pressure 124/80 [Right Arm] O2 Sat by Pulse 100 99 99 Oximetry (%) 04/06/20 04/06/20 04/06/20 18:00 21:00 23:00 Temperature 99.0 F 98.3 F Pulse Rate 105 H 96 H Pulse Rate [ Left] Respiratory 18 18 Rate Blood Pressure 132/79 120/64 Blood Pressure [Right Arm] O2 Sat by Pulse 98 96 96 Oximetry (%) 04/07/20 04/07/20 02:00 06:00 Temperature 98.4 F 98.0 F Pulse Rate 76 71 Pulse Rate [ Left] Respiratory 18 18 Rate Blood Pressure 100/56 L 132/88 Blood Pressure [Right Arm] O2 Sat by Pulse 96 95 Oximetry (%) Microbiology 04/06/20 10:00 Urine - Urine Clean Catch Urine Culture - Final NO GROWTH OBTAINED Laboratory Results - last 24 hr 04/06/20 04/06/20 04/06/20 10:40 15:10 15:10 WBC RBC Hgb Hct MCV MCH MCHC RDW Plt Count MPV Absolute Neuts (auto) Neutrophils % Lymphocytes % Monocytes % Eosinophils % Basophils % Nucleated RBC % Sodium 138 Potassium 4.6 Chloride 109 H Carbon Dioxide 20 L Anion Gap 10 BUN 9.2 Creatinine 0.8 Est GFR (CKD-EPI)AfAm 113.33 Est GFR (CKD-EPI)NonAf 97.78 Random Glucose 87 Hemoglobin A1c % 5.3 Calcium 8.5 Phosphorus 3.2 Magnesium 2.3 Total Bilirubin 0.4 AST 27 ALT 27 Alkaline Phosphatase 101 Total Protein 7.3 Albumin 3.7 Triglycerides Cholesterol Total LDL Cholesterol HDL Cholesterol TSH 1.11 COVID-19 ([facility]) Not detected 04/07/20 04/07/20 04/07/20 07:55 07:55 07:55 WBC 6.8 RBC 4.21 Hgb 13.1 Hct 38.6 MCV 91.6 MCH 31.1 MCHC 34.0 RDW 14.0 Plt Count 216 MPV 7.3 L Absolute Neuts (auto) 4.1 Neutrophils % 60.1 D Lymphocytes % 21.7 D Monocytes % 11.2 H Eosinophils % 6.4 H Basophils % 0.6 Nucleated RBC % 0 Sodium 140 Potassium 4.2 Chloride 109 H Carbon Dioxide 24 Anion Gap 7 L BUN 11.8 Creatinine 0.9 Est GFR (CKD-EPI)AfAm 107.97 Est GFR (CKD-EPI)NonAf 93.16 Random Glucose 95 Hemoglobin A1c % Calcium 8.5 Phosphorus 3.0 Magnesium 2.2 Total Bilirubin 0.6 AST 26 ALT 27 Alkaline Phosphatase 94 Total Protein 6.6 Albumin 3.4 Triglycerides 327 H Cholesterol 204 H Total LDL Cholesterol 122 H HDL Cholesterol 43 TSH COVID-19 ([facility]) Home Medications Medication Instructions Recorded NK [No Known Home Medication] 04/06/20 Current Medications Generic Name Dose Route Start Last Admin Trade Name Freq PRN Reason Stop Dose Admin Chlordiazepoxide HCl 10 mg 04/10/20 05:00 Librium - PO 04/10/20 05:01 ONCE ONE Chlordiazepoxide HCl 10 mg 04/09/20 00:00 Librium - PO 04/09/20 23:59 Q12H PRN Signs/symptoms of Withdrawal Chlordiazepoxide HCl 10 mg 04/06/20 14:31 Librium - PO 04/08/20 23:59 Q8H PRN Signs/symptoms of Withdrawal Chlordiazepoxide HCl 25 mg 04/06/20 21:00 04/07/20 05:12 Librium - PO 04/07/20 21:01 25 mg Q8H ANDRY Administration Chlordiazepoxide HCl 15 mg 04/08/20 05:00 Librium - PO 04/08/20 21:01 Q8H ANDRY Chlordiazepoxide HCl 10 mg 04/09/20 05:00 Librium - PO 04/09/20 21:01 Q8H ANDRY Enoxaparin Sodium 40 mg 04/07/20 10:00 04/07/20 11:01 Lovenox - SQ 40 mg DAILY [facility] Administration Folic Acid 1 mg 04/07/20 10:00 04/07/20 10:58 Folic Acid - PO 1 mg DAILY [facility] Administration Dextrose 1,000 mls @ 75 mls/hr 04/07/20 11:00 04/07/20 11:58 D5w - IV 75 mls/hr ASDIR [facility] Administration Multivitamins/Minerals/Vitamin C 1 tab 04/07/20 10:00 04/07/20 10:58 Tab-A-Vit - PO 1 tab DAILY [facility] Administration Nicotine 21 mg 04/06/20 14:00 04/07/20 11:03 Nicoderm Patch - TD 21 mg DAILY [facility] Administration Pantoprazole Sodium 40 mg 04/07/20 10:00 04/07/20 11:00 Protonix Iv IVPUSH 40 mg DAILY [facility] Administration Polyethylene Glycol 17 gm 04/07/20 10:00 04/07/20 11:57 Miralax (For Daily Use) - PO 17 gm DAILY [facility] Administration Thiamine HCl 200 mg 04/07/20 10:00 04/07/20 10:59 Vitamin B1 Injection - IVPB 04/11/20 09:59 200 mg DAILY [facility] Administration ASSESSMENT AND PLAN: 59 M Etoh abuse disorder with acute intoxication Hyponatremia 2/2 suspected Beer protomania HTN HLD Hypertriglyceridemia Suspected fatty liver v.s. liver cirrhosis Remote h/o seizures 2/2 Etoh abuse Plan: Watch for withdrawal, Librium PRN Supplement Thiamine/FA/MV Supplement PPI, counseled on Etoh cessation, PSA consult IV hydration with NS, if patient can eat start regular diet and allow Na to self-correct w/ cessation of alcohol Renal evaluation DVT ppx: Lovenox SC
--- NOTE | 2020-04-07 15:21 | PN ---
Teaching Attending Note Name of Resident: Serge Valdez ATTENDING PHYSICIAN STATEMENT I saw and evaluated the patient. I reviewed the resident's note and discussed the case with the resident. I agree with the resident's findings and plan as documented. SUBJECTIVE: Patient feels well, has no complaints OBJECTIVE: Vital Signs Period Temp Pulse Resp BP Sys/Loya Pulse Ox Last 24 Hr 98.0 F-99.0 F 71-105 18-18 100-149/56-88 95-99 Physical Exam as noted in Resident note. Supervised PE during Teaching rounds ASSESSMENT AND PLAN: 59 y/o M with HTN, HLD, ETOH abuse who was found down in a park. Found Down: Likely 2/2 ETOh intoxication, cannot rule out Seizure vs. Syncope CT head without any significant findings Librium taper for ETOH Patient reports not drinking ETOH daily, denies ever withdrawing, ever having ETOH siezures Thiamine, Folate, B12, Hyponatremia: Likely in setting of beer podomania Overcorrected Sodium overnight, give free water to patient now, with goal of 135 Continue to monitor neurological function Rest of plan as per resident note
--- NOTE | 2020-04-07 16:37 | PN ---
Progress Note, Physician History of Present Illness: Pt seen and examined a bedside. He is awake and alert. - Current Medication List Current Medications: Active Medications Chlordiazepoxide HCl (Librium -) 10 mg PO ONCE ONE Stop: 04/10/20 05:01 Chlordiazepoxide HCl (Librium -) 10 mg PO Q12H PRN PRN Reason: Signs/symptoms of Withdrawal Stop: 04/09/20 23:59 Chlordiazepoxide HCl (Librium -) 10 mg PO Q8H PRN PRN Reason: Signs/symptoms of Withdrawal Stop: 04/08/20 23:59 Chlordiazepoxide HCl (Librium -) 25 mg PO Q8H [facility] Stop: 04/07/20 21:01 Last Admin: 04/07/20 14:16 Dose: 25 mg Documented by: Chlordiazepoxide HCl (Librium -) 15 mg PO Q8H [facility] Stop: 04/08/20 21:01 Chlordiazepoxide HCl (Librium -) 10 mg PO Q8H [facility] Stop: 04/09/20 21:01 Enoxaparin Sodium (Lovenox -) 40 mg SQ DAILY [facility] Last Admin: 04/07/20 11:01 Dose: 40 mg Documented by: Folic Acid (Folic Acid -) 1 mg PO DAILY [facility] Last Admin: 04/07/20 10:58 Dose: 1 mg Documented by: Dextrose (D5w -) 1,000 mls @ 75 mls/hr IV ASDIR [facility] Last Admin: 04/07/20 11:58 Dose: 75 mls/hr Documented by: Multivitamins/Minerals/Vitamin C (Tab-A-Vit -) 1 tab PO DAILY [facility] Last Admin: 04/07/20 10:58 Dose: 1 tab Documented by: Nicotine (Nicoderm Patch -) 21 mg TD DAILY [facility] Last Admin: 04/07/20 11:03 Dose: 21 mg Documented by: Pantoprazole Sodium (Protonix Iv) 40 mg IVPUSH DAILY [facility] Last Admin: 04/07/20 11:00 Dose: 40 mg Documented by: Polyethylene Glycol (Miralax (For Daily Use) -) 17 gm PO DAILY [facility] Last Admin: 04/07/20 11:57 Dose: 17 gm Documented by: Thiamine HCl (Vitamin B1 Injection -) 200 mg IVPB DAILY [facility] Stop: 04/11/20 09:59 Last Admin: 04/07/20 10:59 Dose: 200 mg Documented by: - Objective Vital Signs: Vital Signs Temperature 98.7 F 04/07/20 14:00 Pulse Rate 81 04/07/20 14:00 Respiratory Rate 18 04/07/20 14:00 Blood Pressure 149/88 04/07/20 14:00 O2 Sat by Pulse Oximetry (%) 97 04/07/20 14:00 Constitutional: Yes: Calm Eyes: Yes: Conjunctiva Clear HENT: Yes: Atraumatic Cardiovascular: Yes: S1, S2 Respiratory: Yes: CTA Bilaterally Gastrointestinal: Yes: Soft Genitourinary: Yes: WNL Musculoskeletal: Yes: WNL Edema: No Neurological: Yes: Oriented Psychiatric: Yes: Oriented Labs: CBC, BMP 04/07/20 07:55 04/07/20 07:55 INR, PTT INR 0.97 (0.83-1.09) 04/06/20 01:32 Problem List - Problems (1) Alcohol intoxication Code(s): F10.929 - ALCOHOL USE, UNSPECIFIED WITH INTOXICATION, UNSPECIFIED Qualifiers: Complication of substance-induced condition: uncomplicated Qualified Code(s): F10.920 - Alcohol use, unspecified with intoxication, uncomplicated (2) Hyponatremia Code(s): E87.1 - HYPO-OSMOLALITY AND HYPONATREMIA Assessment/Plan Current Medications Generic Name Dose Route Start Last Admin Trade Name Freq PRN Reason Stop Dose Admin Chlordiazepoxide HCl 10 mg 04/10/20 05:00 Librium - PO 04/10/20 05:01 ONCE ONE Chlordiazepoxide HCl 10 mg 04/09/20 00:00 Librium - PO 04/09/20 23:59 Q12H PRN Signs/symptoms of Withdrawal Chlordiazepoxide HCl 10 mg 04/06/20 14:31 Librium - PO 04/08/20 23:59 Q8H PRN Signs/symptoms of Withdrawal Chlordiazepoxide HCl 25 mg 04/06/20 21:00 04/07/20 14:16 Librium - PO 04/07/20 21:01 25 mg Q8H [facility] Administration Chlordiazepoxide HCl 15 mg 04/08/20 05:00 Librium - PO 04/08/20 21:01 Q8H ANDRY Chlordiazepoxide HCl 10 mg 04/09/20 05:00 Librium - PO 04/09/20 21:01 Q8H ANDRY Enoxaparin Sodium 40 mg 04/07/20 10:00 04/07/20 11:01 Lovenox - SQ 40 mg DAILY [facility] Administration Folic Acid 1 mg 04/07/20 10:00 04/07/20 10:58 Folic Acid - PO 1 mg DAILY [facility] Administration Dextrose 1,000 mls @ 75 mls/hr 04/07/20 11:00 04/07/20 11:58 D5w - IV 75 mls/hr [facility] Administration Multivitamins/Minerals/Vitamin C 1 tab 04/07/20 10:00 04/07/20 10:58 Tab-A-Vit - PO 1 tab DAILY [facility] Administration Nicotine 21 mg 04/06/20 14:00 04/07/20 11:03 Nicoderm Patch - TD 21 mg DAILY [facility] Administration Pantoprazole Sodium 40 mg 04/07/20 10:00 04/07/20 11:00 Protonix Iv IVPUSH 40 mg DAILY [facility] Administration Polyethylene Glycol 17 gm 04/07/20 10:00 04/07/20 11:57 Miralax (For Daily Use) - PO 17 gm DAILY [facility] Administration Thiamine HCl 200 mg 04/07/20 10:00 04/07/20 10:59 Vitamin B1 Injection - IVPB 04/11/20 09:59 200 mg DAILY [facility] Administration Impression 1. hyponatremia likely beer potomania 2. etoh abuse 3. htn 4. s/p fall Plan - sodium has corrected quickly, pt autocorrected - agree with free water and d5w - cont to monito lytes - cont to monitor sodium level - discussed etoh abuse
[2020-04-07 20:17] LABS: BLOOD UREA NITROGEN 13.5 mg/dL (7-18); CALCIUM 8.6 mg/dL (8.5-10.1); CREATININE 1.2 mg/dL (0.55-1.3)
[2020-04-08] MEDS: DEXTROSE 5%-WATER - 1,000 ML IV SCH ×2 (01:10→12:45)
[2020-04-08 04:07] LABS: HEP B CORE AB, TOT Negative (Negative)
[2020-04-08] MEDS ORDERED: chlordiazePOXIDE 5 MG CAPSULE PO SCH (05:00)
[2020-04-08] MEDS: chlordiazePOXIDE 5 MG CAPSULE PO SCH ×2 (05:41→12:47)
[2020-04-08 07:20] LABS: EOS % 7.4 % (0-4.5); HEMOGLOBIN 13.1 GM/dL (11.7-16.9); LYMPH % 31.2 % (8-40); MCH 31.6 pg (25.7-33.7); MCHC 34.4 g/dl (32.0-35.9); MEAN PLT VOLUME 7.3 fl (7.5-11.1); MONO % 11.5 % (3.8-10.2); NEUT % 48.9 % (42.8-82.8); PLATELET COUNT 192 K/MM3 (134-434); RBC 4.13 M/mm3 (4.00-5.60); RDW 13.6 % (11.9-15.9); WHITE BLOOD COUNT 5.5 K/mm3 (4.0-10.0)
[2020-04-08 07:48] LABS: BLOOD UREA NITROGEN 12.6 mg/dL (7-18); CALCIUM 9.2 mg/dL (8.5-10.1); CREATININE 0.9 mg/dL (0.55-1.3)
[2020-04-08] MEDS: THIAMINE HCL 200 MG/2 ML VIAL IVPB SCH (10:08)
[2020-04-08] MEDS: FOLIC ACID 1 MG TABLET (FP) PO SCH (10:09)
[2020-04-08] MEDS: POLYETHYLENE GLYCOL 3350 119 GM BTL PO SCH (10:09)
[2020-04-08] MEDS: PANTOPRAZOLE SODIUM 40 MG VIAL IVPUSH SCH (10:09)
[2020-04-08] MEDS: ENOXAPARIN NA (PORCINE) 40 MG/0.4 ML DISP.SYRIN SQ SCH (10:09)
[2020-04-08] MEDS: MULTIVITAMINS (DAILY MVI) TABLET (FP) PO SCH (10:09)
[2020-04-08] MEDS: NICOTINE 21 MG/24 HOURS TOPICAL PATCH TD SCH (10:10)
--- NOTE | 2020-04-08 10:46 | EKG ---
Test Reason : Blood Pressure : / mmHG Vent. Rate : 074 BPM Atrial Rate : 074 BPM P-R Int : 144 ms QRS Dur : 154 ms QT Int : 412 ms P-R-T Axes : 036 009 018 degrees QTc Int : 457 ms NORMAL SINUS RHYTHM RIGHT BUNDLE BRANCH BLOCK ABNORMAL ECG Confirmed by NGOZI BECK MD ([id number]) on 04/08/2020 10:46:39 AM Referred By: Confirmed By:NGOZI BECK MD
--- NOTE | 2020-04-08 13:19 | PN ---
Progress Note, Physician History of Present Illness: Pt seen and examined at bedside. He is awake and alert. He denies shortness of breath. - Current Medication List Current Medications: Active Medications Chlordiazepoxide HCl (Librium -) 10 mg PO ONCE ONE Stop: 04/10/20 05:01 Chlordiazepoxide HCl (Librium -) 10 mg PO Q12H PRN PRN Reason: Signs/symptoms of Withdrawal Stop: 04/09/20 23:59 Chlordiazepoxide HCl (Librium -) 10 mg PO Q8H PRN PRN Reason: Signs/symptoms of Withdrawal Stop: 04/08/20 23:59 Chlordiazepoxide HCl (Librium -) 15 mg PO Q8H [facility] Stop: 04/08/20 21:01 Last Admin: 04/08/20 12:47 Dose: 15 mg Documented by: Chlordiazepoxide HCl (Librium -) 10 mg PO Q8H [facility] Stop: 04/09/20 21:01 Enoxaparin Sodium (Lovenox -) 40 mg SQ DAILY [facility] Last Admin: 04/08/20 10:09 Dose: 40 mg Documented by: Folic Acid (Folic Acid -) 1 mg PO DAILY [facility] Last Admin: 04/08/20 10:09 Dose: 1 mg Documented by: Multivitamins/Minerals/Vitamin C (Tab-A-Vit -) 1 tab PO DAILY [facility] Last Admin: 04/08/20 10:09 Dose: 1 tab Documented by: Nicotine (Nicoderm Patch -) 21 mg TD DAILY [facility] Last Admin: 04/08/20 10:10 Dose: 21 mg Documented by: Pantoprazole Sodium (Protonix Iv) 40 mg IVPUSH DAILY [facility] Last Admin: 04/08/20 10:09 Dose: 40 mg Documented by: Polyethylene Glycol (Miralax (For Daily Use) -) 17 gm PO DAILY [facility] Last Admin: 04/08/20 10:09 Dose: 17 gm Documented by: Thiamine HCl (Vitamin B1 Injection -) 200 mg IVPB DAILY [facility] Stop: 04/11/20 09:59 Last Admin: 04/08/20 10:08 Dose: 200 mg Documented by: - Objective Vital Signs: Vital Signs Temperature 98.4 F 04/08/20 10:00 Pulse Rate 77 04/08/20 10:00 Respiratory Rate 20 04/08/20 10:00 Blood Pressure 131/84 04/08/20 10:00 O2 Sat by Pulse Oximetry (%) 97 04/08/20 10:00 Constitutional: Yes: Calm Eyes: Yes: Conjunctiva Clear HENT: Yes: Atraumatic Neck: Yes: Supple Cardiovascular: Yes: S1, S2 Respiratory: Yes: CTA Bilaterally Gastrointestinal: Yes: Soft Genitourinary: Yes: WNL Musculoskeletal: Yes: WNL Edema: No Neurological: Yes: Oriented Psychiatric: Yes: Oriented Labs: CBC, BMP 04/08/20 06:55 04/08/20 06:55 INR, PTT INR 0.97 (0.83-1.09) 04/06/20 01:32 Problem List - Problems (1) Alcohol intoxication Code(s): F10.929 - ALCOHOL USE, UNSPECIFIED WITH INTOXICATION, UNSPECIFIED Qualifiers: Complication of substance-induced condition: uncomplicated Qualified Code(s): F10.920 - Alcohol use, unspecified with intoxication, uncomplicated (2) Hyponatremia Code(s): E87.1 - HYPO-OSMOLALITY AND HYPONATREMIA Assessment/Plan Current Medications Generic Name Dose Route Start Last Admin Trade Name Freq PRN Reason Stop Dose Admin Chlordiazepoxide HCl 10 mg 04/10/20 05:00 Librium - PO 04/10/20 05:01 ONCE ONE Chlordiazepoxide HCl 10 mg 04/09/20 00:00 Librium - PO 04/09/20 23:59 Q12H PRN Signs/symptoms of Withdrawal Chlordiazepoxide HCl 10 mg 04/06/20 14:31 Librium - PO 04/08/20 23:59 Q8H PRN Signs/symptoms of Withdrawal Chlordiazepoxide HCl 15 mg 04/08/20 05:00 04/08/20 12:47 Librium - PO 04/08/20 21:01 15 mg Q8H [facility] Administration Chlordiazepoxide HCl 10 mg 04/09/20 05:00 Librium - PO 04/09/20 21:01 Q8H ANDRY Enoxaparin Sodium 40 mg 04/07/20 10:00 04/08/20 10:09 Lovenox - SQ 40 mg DAILY [facility] Administration Folic Acid 1 mg 04/07/20 10:00 04/08/20 10:09 Folic Acid - PO 1 mg DAILY [facility] Administration Multivitamins/Minerals/Vitamin C 1 tab 04/07/20 10:00 04/08/20 10:09 Tab-A-Vit - PO 1 tab DAILY ANDRY Administration Nicotine 21 mg 04/06/20 14:00 04/08/20 10:10 Nicoderm Patch - TD 21 mg DAILY [facility] Administration Pantoprazole Sodium 40 mg 04/07/20 10:00 04/08/20 10:09 Protonix Iv IVPUSH 40 mg DAILY [facility] Administration Polyethylene Glycol 17 gm 04/07/20 10:00 04/08/20 10:09 Miralax (For Daily Use) - PO 17 gm DAILY [facility] Administration Thiamine HCl 200 mg 04/07/20 10:00 04/08/20 10:08 Vitamin B1 Injection - IVPB 04/11/20 09:59 200 mg DAILY [facility] Administration Impression 1. hyponatremia likely beer potomania 2. etoh abuse 3. htn 4. s/p fall Plan - sodium stable - can d/c d5w - monitor lytes - outpt follow up
--- NOTE | 2020-04-08 14:27 | PN ---
Teaching Attending Note Name of Resident: Pamela Ayala ATTENDING PHYSICIAN STATEMENT I saw and evaluated the patient. I reviewed the resident's note and discussed the case with the resident. I agree with the resident's findings and plan as documented. SUBJECTIVE: Patient feels well, has no complaints OBJECTIVE: Vital Signs Period Temp Pulse Resp BP Sys/Loya Pulse Ox Last 24 Hr 97.7 F-98.7 F 67-83 18-20 131-156/72-92 94-97 Physical Exam as per resident note ASSESSMENT AND PLAN: 59 y/o M with HTN, HLD, ETOH abuse who was [place] down in a park. Found Down: Likely 2/2 ETOh intoxication, No Signs of Seizure CT head without any significant findings, EKG reviewed Librium taper for ETOH withdrawal Thiamine, Folate, B12, Hyponatremia: Resolved Likely in setting of beer podomania Plan to discharge to ETOH Rehab today
--- NOTE | 2020-04-08 14:47 | PN ---
Physical Exam: SUBJECTIVE: NOTE THIS IS A NOTE FOR 2019 (04/07/2020). Patient seen and examined, in no acute distress. No signs of withdrawal, or DTs. Resting comfortably. OBJECTIVE: Vital Signs Period Temp Pulse Resp BP Sys/Loya Pulse Ox Last 24 Hr 97.7 F-98.7 F 67-83 18-20 131-156/72-92 94-97 GENERAL: The patient is awake, alert, and fully oriented, in no acute distress. HEAD: Normal with no signs of trauma. EYES: PERRL, extraocular movements intact, sclera anicteric, conjunctiva clear. No ptosis. NECK: Trachea midline, full range of motion, supple. LUNGS: Breath sounds equal, clear to auscultation bilaterally, no wheezes, no crackles, no accessory muscle use. HEART: Regular rate and rhythm, S1, S2 without murmur, rub or gallop. ABDOMEN: Soft, nontender, nondistended, normoactive bowel sounds EXTREMITIES: 2+ pulses, warm, well-perfused, no edema. NEUROLOGICAL:Normal speech, gait not observed. PSYCH: Normal mood, normal affect. SKIN: Warm, dry, normal turgor, no rashes or lesions noted Laboratory Results - last 24 hr 04/06/20 04/07/20 04/07/20 15:10 18:00 22:21 WBC RBC Hgb Hct MCV MCH MCHC RDW Plt Count MPV Absolute Neuts (auto) Neutrophils % Lymphocytes % Monocytes % Eosinophils % Basophils % Nucleated RBC % Sodium 138 Potassium 4.0 Chloride 107 Carbon Dioxide 22 Anion Gap 9 BUN 13.5 Creatinine 1.2 Est GFR (CKD-EPI)AfAm 76.25 Est GFR (CKD-EPI)NonAf 65.79 Random Glucose 139 H Calcium 8.6 Troponin I < 0.02 Hepatitis A Ab Total Positive H Hep Bs Antibody Non reactive Hep B Core Total Ab Negative 04/08/20 04/08/20 06:55 06:55 WBC 5.5 RBC 4.13 Hgb 13.1 Hct 38.0 MCV 92.0 MCH 31.6 MCHC 34.4 RDW 13.6 Plt Count 192 MPV 7.3 L Absolute Neuts (auto) 2.7 Neutrophils % 48.9 Lymphocytes % 31.2 D Monocytes % 11.5 H Eosinophils % 7.4 H Basophils % 1.0 Nucleated RBC % 0 Sodium 138 Potassium 4.0 Chloride 105 Carbon Dioxide 24 Anion Gap 9 BUN 12.6 Creatinine 0.9 Est GFR (CKD-EPI)AfAm 107.97 Est GFR (CKD-EPI)NonAf 93.16 Random Glucose 111 H Calcium 9.2 Troponin I Hepatitis A Ab Total Hep Bs Antibody Hep B Core Total Ab Active Medications Generic Name Dose Route Start Last Admin Trade Name Freq PRN Reason Stop Dose Admin Chlordiazepoxide HCl 10 mg 04/10/20 05:00 Librium - PO 04/10/20 05:01 ONCE ONE Chlordiazepoxide HCl 10 mg 04/09/20 00:00 Librium - PO 04/09/20 23:59 Q12H PRN Signs/symptoms of Withdrawal Chlordiazepoxide HCl 10 mg 04/06/20 14:31 Librium - PO 04/08/20 23:59 Q8H PRN Signs/symptoms of Withdrawal Chlordiazepoxide HCl 15 mg 04/08/20 05:00 04/08/20 12:47 Librium - PO 04/08/20 21:01 15 mg Q8H ANDRY Administration Chlordiazepoxide HCl 10 mg 04/09/20 05:00 Librium - PO 04/09/20 21:01 Q8H ANDRY Enoxaparin Sodium 40 mg 04/07/20 10:00 04/08/20 10:09 Lovenox - SQ 40 mg DAILY [facility] Administration Folic Acid 1 mg 04/07/20 10:00 04/08/20 10:09 Folic Acid - PO 1 mg DAILY [facility] Administration Multivitamins/Minerals/Vitamin C 1 tab 04/07/20 10:00 04/08/20 10:09 Tab-A-Vit - PO 1 tab DAILY [facility] Administration Nicotine 21 mg 04/06/20 14:00 04/08/20 10:10 Nicoderm Patch - TD 21 mg DAILY [facility] Administration Pantoprazole Sodium 40 mg 04/07/20 10:00 04/08/20 10:09 Protonix Iv IVPUSH 40 mg DAILY [facility] Administration Polyethylene Glycol 17 gm 04/07/20 10:00 04/08/20 10:09 Miralax (For Daily Use) - PO 17 gm DAILY [facility] Administration Thiamine HCl 200 mg 04/07/20 10:00 04/08/20 10:08 Vitamin B1 Injection - IVPB 09/07/20 09:59 200 mg DAILY [facility] Administration ASSESSMENT/PLAN: Pt is a 59 y/o male with ETOH use disorder,HTN, and BPH who was brought into the ED after being found on the ground in a park. Pt is admitted for loss of consciousness likely 2/2 ETOH intoxication. Loss of Consciousness 2/2 Alcohol Intoxication vs Seizure etiology vs Cardiac -Alcohol -Hx of alcohol use. Per patient 6-12 beers per day. No liqour. -ETOH level 325 -Librium detox protocol -Rule out Trauma -Unconscious in park -CT head: No acute trauma -CT C-Spine: No acute trauma -Cardiac: -EKG: NORMAL SINUS RHYTHM, RIGHT BUNDLE BRANCH BLOCK -Troponins Negative -ECHO: EF: 65% Impaired LV Relaxation. Mild mitral and tricuspid regurg -Carotid Doppler:Mild intimal thickening and a small plaque at the right common carotid bifurcation/follicle as well as mild intimal thickening at the left common carotid bifurcation without evidence of hemodynamically significant stenosis Hyponatremia likely 2/2 ETOH use: Beer potomania -Sodium -Na 128 -Avoid over-correcting more than 6 points in 24 hours because of risk of osmotic demyelination syndrome -Banana bag given in ED -Thiamine & Folate -Multivitamin -Correction: -Na now 140 -D5W @ 75 to bring down sodium Constipation -c/w Miralax HTN -Hold Home Norvasc for now BPH -Hold Home Flomax for now DVT Ppx -Lovenox 40mg Qdaily dispo Continue management on the medical floors Visit type - Emergency Visit Emergency Visit: No - New Patient This patient is new to me today: Yes Date on this admission: 04/08/20 - Critical Care Critical Care patient: No - Discharge Referral Referred to [facility] Med P.C.: No ATTENDING PHYSICIAN STATEMENT I saw and evaluated the patient. I reviewed the resident's note and discussed the case with the resident. I agree with the resident's findings and plan as documented. SUBJECTIVE: OBJECTIVE: ASSESSMENT AND PLAN:
--- NOTE | 2020-04-08 15:23 | DS ---
Physical Exam: SUBJECTIVE: Patient seen and examined this morning, no distress, no sign of withdrawal. Spoke about rehabilitation, patient agreed. OBJECTIVE: Vital Signs Period Temp Pulse Resp BP Sys/Loya Pulse Ox Last 24 Hr 97.7 F-98.7 F 67-83 18-20 131-156/72-92 94-97 PHYSICAL EXAM GENERAL: The patient is awake, alert, and fully oriented, in no acute distress. HEAD: Normal with no signs of trauma. EYES: PERRL, extraocular movements intact, sclera anicteric, conjunctiva clear. No ptosis. NECK: Trachea midline, full range of motion, supple. LUNGS: Breath sounds equal, clear to auscultation bilaterally, no wheezes, no crackles, no accessory muscle use. HEART: Regular rate and rhythm, S1, S2 without murmur, rub or gallop. ABDOMEN: Soft, nontender, nondistended, normoactive bowel sounds EXTREMITIES: 2+ pulses, warm, well-perfused, no edema. NEUROLOGICAL:Normal speech, gait not observed. PSYCH: Normal mood, normal affect. SKIN: Warm, dry, normal turgor, no rashes or lesions noted LABS Laboratory Results - last 24 hr CBC, BMP 04/08/20 06:55 04/08/20 06:55 HOSPITAL COURSE: Date of Admission:04/06/20 -EKG: NORMAL SINUS RHYTHM, RIGHT BUNDLE BRANCH BLOCK -Troponins Negative -ECHO: EF: 65% Impaired LV Relaxation. Mild mitral and tricuspid regurg -Carotid Doppler:Mild intimal thickening and a small plaque at the right common carotid bifurcation/follicle as well as mild intimal thickening at the left common carotid bifurcation without evidence of hemodynamically significant stenosis -CT head: No acute trauma -CT C-Spine: No acute trauma Date of Discharge: 04/08/20 59 yo M w/ PMHx of ETOH use disorder, HTN, and BPH was brought into the ED after being found on the ground in a park. He states he was drinking at the corner store and does not remember how he was found in the park. Ptn stated he was drinking more than usual, however denies drinking any liquour or using any drugs. He normally drinks a 6 pack daily, but he does not know how much he drank yesterday. Ptn does not recall if he had any trauma before he was found in the park. Denied any auditory or visual hallucinations, fever, chills, dizziness, chest pain, shortness of breath, nausea, vomiting, or dysuria. While in the ED, patient had a CT Head and Spine which were negative for any acute pathology. EToH was 325 and Na+ was noted to be 128. Librium protocol was started. The patient was admitted to floors where Librium was continued and hyponatremia (likely due to Beer Potomania) was slowly corrected to avoid osmotic demyleination syndrome. Cardiology and Nephrology were consulted respectively and their recs appreciated. The patient's sodium was corrected, and tolerated librium well showing no signs of withdrawal. At this time, the patient was deemed stable for discharge to [facility] for continued detoxification and rehab. Minutes to complete discharge: 36 Discharge Summary Problems reviewed: Yes Reason For Visit: ALCOHOL INTOXICATION, ALTERED MENTAL STATUS Current Active Problems Nicotine dependence (Chronic) Condition: Improved - Instructions Diet, Activity, Other Instructions: Summary: You were admitted to the hospital for alcohol withdrawal and abnormal blood levels. You were treated with medication to help your withdrawal and given fluids to hydrate you. Your symptoms improved. At the time of discharge from the hospital, you were deemed medically stable for transfer to [facility] Of note, you had an abnormal chest xray, heart rhythm, and a small plaque was found in your artery which we are referring you to a Hall Monitor for. Medications changes: -Please continue to take the medication as instructed by [facility] Re habilitation. -We have prescribed a new medication called Atorvastatin 20mg. Please take this medication once daily. -Continue to take all other home medications as prescribed. Follow up: - Please follow-up with Dr. Aragon (detox management) for continued detox and rehab. - Please follow-up with Dr. Robledo (Cardiology) within 1 week of finishing rehabilitation to follow your heart issues. - Visit with your Primary Care Provider in 2 weeks. If you do not have a primary care provider you may make an appointment with Dr. Valdez at the [facility] clinic located at [address] [place] [address] ([phone]). Additional Instructions: -You are being discharged to [facility] for completion of your detox. -Maintain a low fat diet. -Please return to the Emergency Department if you experience worsening pain, fevers, chills, shortness of breath, or chest pain, or if you experience any worsening, new or concerning symptoms. Referrals: Chato Cronin MD [Staff Physician] - 2 Weeks Suresh Aragon DO [Staff Physician] - 1 Week Disposition: I.P. ALCOHOL/SUBS ABUSE REHAB - Home Medications Comprehensive Discharge Medication List: Ambulatory Orders Amlodipine Besylate 5 mg PO DAILY 04/07/20 Pantoprazole Sodium [Protonix -] 20 mg PO DAILY 04/07/20 Tamsulosin HCl [Flomax] 0.4 mg PO DAILY 04/07/20 Chlordiazepoxide [Librium -] 10 mg PO Q12H PRN capsule 04/08/20 Chlordiazepoxide [Librium -] 10 mg PO Q12H PRN capsule 04/08/20 Chlordiazepoxide [Librium -] 10 mg PO Q8H capsule 04/08/20 Chlordiazepoxide [Librium -] 10 mg PO Q8H capsule 04/08/20 Chlordiazepoxide [Librium -] 10 mg PO Q8H PRN capsule 04/08/20 Chlordiazepoxide [Librium -] 15 mg PO Q8H capsule 04/08/20 Chlordiazepoxide [Librium -] 15 mg PO Q8H capsule 04/08/20 Chlordiazepoxide [Librium -] 25 mg PO Q8H capsule 04/08/20 Multivitamins [Multivit ([facility] Formulary)] 1 tab PO DAILY tab 04/08/20 Multivitamins [Multivit ([facility] Formulary)] 1 tab PO DAILY tab 04/08/20 This patient is new to me today: No Emergency Visit: No Critical Care patient: No - Discharge Referral Referred to [facility] Med P.C.: No ATTENDING PHYSICIAN STATEMENT I saw and evaluated the patient. I reviewed the resident's note and discussed the case with the resident. I agree with the resident's findings and plan as documented. SUBJECTIVE: OBJECTIVE: ASSESSMENT AND PLAN:
[2020-04-08 17:10] VITALS: BP 153/103; PULSE 70; TEMP 98.2
[2020-04-09] MEDS ORDERED: chlordiazePOXIDE HCL 10 MG CAPSULE PO PRN ×2
[2020-04-09] MEDS ORDERED: chlordiazePOXIDE HCL 10 MG CAPSULE PO SCH ×2 (05:00)
[2020-04-10] MEDS ORDERED: chlordiazePOXIDE HCL 10 MG CAPSULE PO ONE ×2 (05:00)
== END 2020-04-08 16:57 | disposition other institution (70) | DRG 775 ==
LOC: JER 23:52 → JERBED 04-06 00:58 → J5S 04-06 14:26
PROVIDERS: ADMIT Internal Medicine; ATTEND Internal Medicine
PROC: HZ2ZZZZ Detoxification Services for Substance Abuse Treatment (ICD-10-PCS; principal; 2020-04-06)
DX: F10.239 Alcohol dependence with withdrawal, unspecified (principal); I45.10 Unspecified right bundle-branch block; N40.0 Benign prostatic hyperplasia without lower urinary tract symptoms; R55 Syncope and collapse; E86.0 Dehydration; F17.210 Nicotine dependence, cigarettes, uncomplicated; K59.00 Constipation, unspecified; J44.9 Chronic obstructive pulmonary disease, unspecified; F10.229 Alcohol dependence with intoxication, unspecified; E87.1 Hypo-osmolality and hyponatremia; I10 Essential (primary) hypertension; E78.5 Hyperlipidemia, unspecified; E78.1 Pure hyperglyceridemia
CPT/HCPCS: 36415; 70450-TC; 71045-TC-FY; 72125-TC; 80048; 80053; 80061; 80307; 81003; 82550; 83036; 83690; 83721; 83735; 83880; 84100; 84443; 84484; 85025; 85610; 85730; 86704; 86706; 86708; 87086; 87522; 93005; 93010; 93306-TC; 93880-TC; 99285-25; U0003

== ENCOUNTER 2020-04-08 18:45 | Inpatient (IN) | payer OTHER ==
[2020-04-08] MEDS ORDERED: ONDANSETRON *ODT* 4 MG TABLET SL PRN (21:25)
[2020-04-08] MEDS ORDERED: MAG HYDROX/AL HYDROX/SIMETH 30 ML UNIT-DOSE CUP PO PRN (21:25)
[2020-04-08] MEDS ORDERED: BISMUTH SUBSALICYLATE 524 MG/30 ML UD PO PRN (21:25)
[2020-04-08] MEDS ORDERED: NICOTINE POLACRILEX 2 MG GUM BUC PRN (21:25)
[2020-04-08] MEDS ORDERED: ACETAMINOPHEN 325 MG TABLET (FP) PO PRN ×2 (21:25)
[2020-04-08] MEDS ORDERED: DICYCLOMINE HCL 10 MG CAPSULE PO PRN (21:25)
[2020-04-08] MEDS ORDERED: METHOCARBAMOL 500 MG TABLET PO PRN (21:25)
[2020-04-08] MEDS ORDERED: MAGNESIUM HYDROX 2400MG/30ML ORAL SUSPENSION 30 ML CUP PO PRN (21:25)
[2020-04-08] MEDS ORDERED: guaiFENesin 200 MG/10 ML 10 ML UNIT-DOSE CUPS PO PRN (21:25)
[2020-04-08] MEDS ORDERED: MENTHOL/PHENOL 1 EACH UD MM PRN (21:25)
[2020-04-08] MEDS ORDERED: MAGNESIUM CITRATE 300 ML BOTTLE PO PRN (21:25)
[2020-04-08] MEDS ORDERED: IBUPROFEN 400 MG TABLET (FP) PO PRN (21:25)
[2020-04-08] MEDS ORDERED: P-EPHED 60MG/TRIPROLIDI 2.5MG TABLET PO PRN (21:25)
[2020-04-08] MEDS ORDERED: chlordiazePOXIDE HCL 10 MG CAPSULE PO PRN (21:30)
--- NOTE | 2020-04-08 21:33 | HP ---
CIWA Score Nausea/Vomitin-No Nausea/No Vomiting Muscle Tremors: 1-None Visible, but [place] Anxiety: 1-Mildly Anxious Agitation: 1-Slight > Activity Paroxysmal Sweats: No Perspiration Orientation: 0-Oriented Tacttile Disturbances: 0-None Auditory Disturbances: 0-None Visual Disturbances: 0-None Headache: 0-None Present CIWA-Ar Total Score: 3 - Admission Criteria OASAS Guidelines: Admission for Medically Managed Detox: Requires at least one of the followin. CIWA greater than 12 2. Seizures within the past 24 hours 3. Delirium tremens within the past 24 hours 4. Hallucinations within the past 24 hours 5. Acute intervention needed for co occurring medical disorder 6. Acute intervention needed for co occurring psychiatric disorder 7. Severe withdrawal that cannot be handled at a lower level of care (continued vomiting, continued diarrhea, abnormal vital signs) requiring intravenous medication and/or fluids 8. Patient presents the following: Acute intervention needed for co-occurring med or psych disorder (transfer from [facility] for continuation of detox after 2 days of detox) Admission Criteria Met: Admission criteria met Admitting History and Physical - Past Medical History Cardiovascular: Yes: HTN - Smoking History Smoking history: Never smoked - Alcohol/Substance Use Hx Alcohol Use: Yes Number of Drinks Daily: 12 History of Substance Use: reports: None Admission ROS S - HPI Chief Complaint: here to complete detox after being admitted to [place] [id number] on 04/06/2020 negative Allergies/Adverse Reactions: Allergies Allergy/AdvReac Type Severity Reaction Status Date / Time No Known Allergies Allergy Verified 04/06/20 00:16 History of Present Illness: here for alcohol detox. this is client first admission. he is referred by [facility] after being admitted there 2 days for alcohol intoxication. he was started on a librium taper stabilized and referred here for completion of txment. client denies hx/o alcohol abuse. states he over drank one day and passed out. he reports drinking 12 cans of beer that day. denies hx/o illicit substance of abuse, drug overdoes, blackouts and seizures. lives with family, unemployed, denies legals HOSPITAL COURSE: Date of Admission:04/06/20 -EKG: NORMAL SINUS RHYTHM, RIGHT BUNDLE BRANCH BLOCK -Troponins Negative -ECHO: EF: 65% Impaired LV Relaxation. Mild mitral and tricuspid regurg -Carotid Doppler:Mild intimal thickening and a small plaque at the right common carotid bifurcation/follicle as well as mild intimal thickening at the left common carotid bifurcation without evidence of hemodynamically significant stenosis -CT head: No acute trauma -CT C-Spine: No acute trauma Date of Discharge: 04/08/20 59 yo M w/ PMHx of ETOH use disorder, HTN, and BPH was brought into the ED after being [place] in a [place]. He states he was drinking at the corner store and does not remember how he was found in the park. Ptn stated he was drinking more than usual, however denies drinking any liquour or using any drugs. He normally drinks a 6 pack daily, but he does not know how much he drank yesterday. Ptn does not recall if he had any trauma before he was found in the park. Denied any auditory or visual hallucinations, fever, chills, dizziness, chest pain, shortness of breath, nausea, vomiting, or dysuria. While in the ED, patient had a CT Head and Spine which were negative for any acute pathology. EToH was 325 and Na+ was noted to be 128. Librium protocol was started. The patient was admitted to floors where Librium was continued and hyponatremia (likely due to Beer Potomania) was slowly corrected to avoid osmotic demyleination syndrome. Cardiology and Nephrology were consulted respectively and their recs appreciated. The patient's sodium was corrected, and tolerated librium well showing no signs of withdrawal. At this time, the patient was deemed stable for discharge to [facility] for continued detoxification and rehab. Minutes to complete discharge: 36 Discharge Summary Problems reviewed: Yes Reason For Visit: ALCOHOL INTOXICATION, ALTERED MENTAL STATUS Current Active Problems Nicotine dependence (Chronic) Condition: Improved - Instructions Diet, Activity, Other Instructions: Summary: You were admitted to the hospital for alcohol withdrawal and abnormal blood levels. You were treated with medication to help your withdrawal and given fluids to hydrate you. Your symptoms improved. At the time of discharge from the hospital, you were deemed medically stable for transfer to [facility] Of note, you had an abnormal chest xray, heart rhythm, and a small plaque was found in your artery which we are referring you to a C[employer] Redemption Clerk for. Medications changes: -Please continue to take the medication as instructed by [facility]. -We have prescribed a new medication called Atorvastatin 20mg. Please take this medication once daily. -Continue to take all other home medications as prescribed. Follow up: - Please follow-up with Dr. Aragon (detox management) for continued detox and reha b. - Please follow-up with Dr. Robledo (Cardiology) within 1 week of finishing rehabilitation to follow your heart issues. - Visit with your Primary Care Provider in 2 weeks. If you do not have a primary care provider you may make an appointment with Dr. Valdez at the [facility] clinic located at [address] [place] [address] ([phone]). Additional Instructions: -You are being discharged to [facility] for completion of your detox. -Maintain a low fat diet. -Please return to the Emergency Department if you experience worsening pain, fevers, chills, shortness of breath, or chest pain, or if you experience any worsening, new or concerning symptoms. Referrals: Chato Cronin MD [Staff Physician] - 2 Weeks Suresh Aragon DO [Staff Physician] - 1 Week Disposition: I.P. ALCOHOL/SUBS ABUSE REHAB - Home Medications Comprehensive Discharge Medication List: Ambulatory Orders Amlodipine Besylate 5 mg PO DAILY 04/07/20 Pantoprazole Sodium [Protonix -] 20 mg PO DAILY 04/07/20 Tamsulosin HCl [Flomax] 0.4 mg PO DAILY 04/07/20 Chlordiazepoxide [Librium -] 10 mg PO Q12H PRN capsule 04/08/20 Chlordiazepoxide [Librium -] 10 mg PO Q12H PRN capsule 04/08/20 Chlordiazepoxide [Librium -] 10 mg PO Q8H capsule 04/08/20 Chlordiazepoxide [Librium -] 10 mg PO Q8H capsule 04/08/20 Chlordiazepoxide [Librium -] 10 mg PO Q8H PRN capsule 04/08/20 Chlordiazepoxide [Librium -] 15 mg PO Q8H capsule 04/08/20 Chlordiazepoxide [Librium -] 15 mg PO Q8H capsule 04/08/20 Chlordiazepoxide [Librium -] 25 mg PO Q8H capsule 04/08/20 Multivitamins [Multivit ([facility] Formulary)] 1 tab PO DAILY tab 04/08/20 Multivitamins [Multivit ([facility] Formulary)] 1 tab PO DAILY tab 04/08/20 This patient is new to me today: No Emergency Visit: No Critical Care patient: No - Discharge Referral Referred to [facility] Med P.C.: No ATTENDING PHYSICIAN STATEMENT I saw and evaluated the patient. I reviewed the resident's note and discussed the case with the resident. I agree with the resident's findings and plan as documented. SUBJECTIVE: OBJECTIVE: ASSESSMENT AND PLAN: Exam Limitations: No Limitations - Ebola screening Have you traveled outside of the country in the last 21 days: No Have you had contact with anyone from an Ebola affected area: No Have you been sick,other than usual withdrawal symptoms: No Do you have a fever: No - Review of Systems Constitutional: No Symptoms Reported EENT: reports: Dental Problems (missing teeth) Respiratory: reports: No Symptoms reported Cardiac: reports: No Symptoms Reported, Edema (ble) GI: reports: No Symptoms Reported : reports: Other (bph on flomax) Musculoskeletal: reports: No Symptoms Reported Integumentary: reports: Other (rue mass) Neuro: reports: No Symptoms reported Endocrine: reports: No Symptoms Reported Hematology: reports: No Symptoms Reported Psychiatric: reports: Orientated x3, Anxious Other Systems: Reviewed and Negative Patient History - Patient Medical History Hx Anemia: No Hx Asthma: No Hx Chronic Obstructive Pulmonary Disease (COPD): No Hx Cancer: No Hx Cardiac Disorders: No Hx Congestive Heart Failure: No Hx Hypertension: Yes Hx Hypercholesterolemia: Yes Hx Pacemaker: No HX Cerebrovascular Accident: No Hx Seizures: No Hx Dementia: No Hx Diabetes: No Hx Gastrointestinal Disorders: Yes (gerd) Hx Liver Disease: No Hx Genitourinary Disorders: Yes (bph) Hx Sexually Transmitted Disorders: No Hx Renal Disease (ESRD): No Hx Thyroid Disease: No Hx Human Immunodeficiency Virus (HIV): No Hx Hepatitis C: No Hx Depression: No Hx Suicide Attempt: No Hx Bipolar Disorder: No Hx Schizophrenia: No Other Medical History: denies - Patient Surgical History Past Surgical History: No - PPD History Previous Implant?: Yes Documented Results: Negative w/o proof Implanted On Prior R Admission?: No PPD to be Administered?: Yes - Smoking Cessation Smoking history: Current every day smoker Have you smoked in the past 12 months: Yes Aproximately how many cigarettes per day: 5 Cigars Per Day: 0 Hx Chewing Tobacco Use: No Initiated information on smoking cessation: Yes 'Breaking Loose' booklet given: 04/08/20 - Substance & Tx. History Hx Alcohol Use: Yes Hx Substance Use: Yes Substance Use Type: Alcohol Hx Substance Use Treatment: Yes ([facility]) - Substances abused Alcohol Other (specify): beer Substance route: Oral Frequency: No use in 30 days Amount used: 12 cans Age of first use: 59 Date of last use: 04/06/20 Admission Physical Exam [facility] - Physical General Appearance: Yes: Anxious HEENTM: Yes: EOMI, Normocephalic, Normal Voice, DUANE, Pharynx Normal, Other (poor dentition) Respiratory: Yes: Chest Non-Tender, Lungs Clear, Decreased Breath Sounds, No Respiratory Distress, No Accessory Muscle Use, Other (productive cough) Neck: Yes: No masses,lesions,Nodules, Supple Breast: Yes: Breasts Symetrical Cardiology: Yes: Regular Rhythm, Regular Rate, S1, S2 Abdominal: Yes: Normal Bowel Sounds, Non Tender, Soft, Protuberent Genitourinary: Yes: Within Normal Limits Back: Yes: Normal Inspection Musculoskeletal: Yes: Joint Stiffness (right hand unable to make a complete fist), Other (unsteady gait) Extremities: Yes: Non-Tender Neurological: Yes: Fully Oriented, Alert, Motor Strength 5/5, Depressed Affect Integumentary: Yes: Dry, Warm, Other (rue mass) - Diagnostic (1) Opioid dependence, uncomplicated Current Visit: Yes Status: Acute (2) HTN (hypertension) Current Visit: Yes Status: Acute (3) HLD (hyperlipidemia) Current Visit: Yes Status: Acute (4) GERD (gastroesophageal reflux disease) Current Visit: Yes Status: Acute (5) Nicotine dependence Current Visit: No Status: Chronic Qualifiers: Nicotine product type: cigarettes Substance use status: uncomplicated Qualified Code(s): F17.210 - Nicotine dependence, cigarettes, uncomplicated (6) Risk for falls Current Visit: Yes Status: Acute (7) Mass of right upper extremity Current Visit: Yes Status: Chronic Cleared for Admission [facility] - Detox or Rehab [facility] Level of Care: Medically Managed Detox Regimen/Protocol: Librium Claeared for Rehab Admission: No Inpatient Rehab Admission - Rehab Decision to Admit Inpatient rehab admission?: No
[2020-04-08 21:38] VITALS: BMI 29.6
[2020-04-08] MEDS ORDERED: TRIMETHOBENZAMIDE HCL 200MG/2ML INJ IM ONE (22:15)
[2020-04-08] MEDS: THIAMINE HCL 100 MG TABLET (FP) PO SCH (23:40)
[2020-04-08] MEDS: MELATONIN 5 MG TABLETS PO SCH (23:40)
[2020-04-08] MEDS: hydrOXYzine PAMOATE 25 MG CAPSULE (FP) PO PRN (23:40)
[2020-04-08] MEDS: chlordiazePOXIDE HCL 10 MG CAPSULE PO SCH (23:40)
[2020-04-09] MEDS: chlordiazePOXIDE HCL 10 MG CAPSULE PO SCH ×3 (06:04→18:29)
[2020-04-09 10:24] LABS: ALBUMIN 3.4 g/dl (3.4-5.0); BILIRUBIN,TOTAL 0.4 mg/dL (0.2-1); BLOOD UREA NITROGEN 15.4 mg/dL (7-18); CALCIUM 8.8 mg/dL (8.5-10.1); CREATININE 1.1 mg/dL (0.55-1.3); POTASSIUM 3.9 mmol/L (3.5-5.1); TOT PROT 6.8 g/dl (6.4-8.2)
[2020-04-09] MEDS: PRENATAL VITAMINS W/ FOLIC ACID TABLET (FP) PO SCH (10:24)
[2020-04-09] MEDS: NICOTINE 14 MG/24 HOURS TOPICAL PATCH TD SCH (10:25)
--- NOTE | 2020-04-09 12:12 | PN ---
S CIWA - CIWA Score Nausea/Vomitin-No Nausea/No Vomiting Muscle Tremors: None Anxiety: 3 Agitation: 0-Normal Activity Paroxysmal Sweats: 3 Orientation: 0-Oriented Tacttile Disturbances: 0-None Auditory Disturbances: 0-None Visual Disturbances: 0-None Headache: 0-None Present CIWA-Ar Total Score: 6 [facility] Progress Note (SOAP) Subjective: c/o sweats, anxiety, and headache. Objective: 04/09/20 12:11 Vital Signs 04/09/20 04/09/20 06:22 08:58 Temperature 97.1 F L 98.4 F Pulse Rate 76 88 Respiratory 18 18 Rate Blood Pressure 129/86 115/65 O2 Sat by Pulse 96 Oximetry (%) Labs pending. Assessment: 04/09/20 12:11 AOX3, in no acute respiratory distress. Full ROM, ambulating in the unit. Withdrawal symptoms. Plan: continue detox.
--- NOTE | 2020-04-09 15:38 | CONSULT ---
[facility] Psychiatric Consult - Data Date of interview: 04/09/20 Admission source: [facility] Identifying data: Patient is approached for psychiatric evaluation. Mr Rupal Ruiz refuses. " Leave me alone. Go away. I am sleeping. I cannot rest in this place." Nursing staff is informed of patient's refusal of psychiatric assessment.
[2020-04-09 17:27] LABS: PH,URINE 5.5 (5.0-8.0); URINE APPEARANCE CLEAR; URINE BILIRUBIN NEGATIVE (NEGATIVE); URINE COLOR DK YELLOW; URINE GLUCOSE (UA) NEGATIVE (NEGATIVE); URINE KETONE TRACE (NEGATIVE); URINE LEUK ESTERASE NEGATIVE (NEGATIVE); URINE NITRITE NEGATIVE (NEGATIVE); URINE PROTEIN NEGATIVE (NEGATIVE)
[2020-04-09] MEDS: hydrOXYzine PAMOATE 25 MG CAPSULE (FP) PO PRN (18:29)
[2020-04-09] MEDS: MELATONIN 5 MG TABLETS PO SCH (22:42)
[2020-04-09] MEDS: THIAMINE HCL 100 MG TABLET (FP) PO SCH (22:43)
[2020-04-10] MEDS: PRENATAL VITAMINS W/ FOLIC ACID TABLET (FP) PO SCH (10:21)
[2020-04-10] MEDS: NICOTINE 14 MG/24 HOURS TOPICAL PATCH TD SCH (10:22)
[2020-04-10] MEDS: chlordiazePOXIDE HCL 10 MG CAPSULE PO SCH ×2 (10:24→22:15)
--- NOTE | 2020-04-10 15:57 | PN ---
S CIWA - CIWA Score Nausea/Vomitin-No Nausea/No Vomiting Muscle Tremors: 1-None Visible, but [place] Anxiety: 1-Mildly Anxious Agitation: 0-Normal Activity Paroxysmal Sweats: No Perspiration Orientation: 0-Oriented Tacttile Disturbances: 0-None Auditory Disturbances: 0-None Visual Disturbances: 0-None Headache: 1-Very Mild CIWA-Ar Total Score: 3 BHS Progress Note (SOAP) Subjective: 59 years old male was admitted on 04/08/20 for alcohol withdrawal sx management treating with librium detox regiment mr elizabeth was admitted to ER from 04/06/20 to 04/08/20 for alcohol intoxication medically suitable for detox unit on 04/08/20 feels better today less tremor mild anxiety discussing aftercare with staff prefers [facility] for alcohol abuse treatment Objective: 04/10/20 15:58 Laboratory Tests 04/09/20 04/09/20 04/09/20 07:25 07:25 13:18 Sodium 141 Potassium 3.9 Chloride 107 Carbon Dioxide 24 Anion Gap 10 BUN 15.4 Creatinine 1.1 Est GFR (CKD-EPI)AfAm 84.71 Est GFR (CKD-EPI)NonAf 73.09 Random Glucose 110 H Calcium 8.8 Total Bilirubin 0.4 AST 22 ALT 27 Alkaline Phosphatase 100 Total Protein 6.8 Albumin 3.4 Urine Color Dk yellow Urine Appearance Clear Urine pH 5.5 Ur Specific [place] 1.021 Urine Protein Negative Urine Glucose (UA) Negative Urine Ketones Trace H Urine Blood Negative Urine Nitrite Negative Urine Bilirubin Negative Urine Urobilinogen 1.0 Ur Leukocyte Esterase Negative Syphilis Serology Non-reactive Vital Signs - 24 hr 04/09/20 04/09/20 04/10/20 16:40 20:52 06:11 Temperature 97.8 F 97.3 F L 98.2 F Pulse Rate 75 75 58 L Respiratory 16 16 18 Rate Blood Pressure 105/65 140/79 110/58 L O2 Sat by Pulse 96 95 97 Oximetry (%) 04/10/20 04/10/20 08:50 12:56 Temperature 98.2 F 98.4 F Pulse Rate 79 76 Respiratory 18 18 Rate Blood Pressure 109/66 111/61 O2 Sat by Pulse 95 Oximetry (%) lab noted Assessment: 04/10/20 15:59 alcohol withdrawal Plan: librium regiment
[2020-04-10] MEDS: THIAMINE HCL 100 MG TABLET (FP) PO SCH (22:15)
[2020-04-10] MEDS: MELATONIN 5 MG TABLETS PO SCH (22:15)
--- NOTE | 2020-04-10 23:22 | PN ---
[facility] Progress Note Note: Patient's PPD is positive with 24mm skin induration as reported by the nurse, Kassi Bessy Cummings. Vital Signs Temperature 98.0 F 04/10/20 20:45 Pulse Rate 83 04/10/20 20:45 Respiratory Rate 18 04/10/20 20:45 Blood Pressure 149/79 04/10/20 20:45 O2 Sat by Pulse Oximetry (%) 96 04/10/20 20:45 Laboratory Last Values Sodium 141 mmol/L (136-145) 04/09/20 07:25 Potassium 3.9 mmol/L (3.5-5.1) 04/09/20 07:25 Chloride 107 mmol/L (98-107) 04/09/20 07:25 Carbon Dioxide 24 mmol/L (21-32) 04/09/20 07:25 Anion Gap 10 MMOL/L (8-16) 04/09/20 07:25 BUN 15.4 mg/dL (7-18) 04/09/20 07:25 Creatinine 1.1 mg/dL (0.55-1.3) 04/09/20 07:25 Est GFR (CKD-EPI)AfAm 84.71 04/09/20 07:25 Est GFR (CKD-EPI)NonAf 73.09 04/09/20 07:25 Random Glucose 110 mg/dL (74-106) H 04/09/20 07:25 Calcium 8.8 mg/dL (8.5-10.1) 04/09/20 07:25 Total Bilirubin 0.4 mg/dL (0.2-1) 04/09/20 07:25 AST 22 U/L (15-37) 04/09/20 07:25 ALT 27 U/L (13-61) 04/09/20 07:25 Alkaline Phosphatase 100 U/L (45-117) 04/09/20 07:25 Total Protein 6.8 g/dl (6.4-8.2) 04/09/20 07:25 Albumin 3.4 g/dl (3.4-5.0) 04/09/20 07:25 Urine Color Dk yellow 04/09/20 13:18 Urine Appearance Clear 04/09/20 13:18 Urine pH 5.5 (5.0-8.0) 04/09/20 13:18 Ur Specific [place] 1.021 (1.010-1.035) 04/09/20 13:18 Urine Protein Negative (NEGATIVE) 04/09/20 13:18 Urine Glucose (UA) Negative (NEGATIVE) 04/09/20 13:18 Urine Ketones Trace (NEGATIVE) H 04/09/20 13:18 Urine Blood Negative (NEGATIVE) 04/09/20 13:18 Urine Nitrite Negative (NEGATIVE) 04/09/20 13:18 Urine Bilirubin Negative (NEGATIVE) 04/09/20 13:18 Urine Urobilinogen 1.0 mg/dL (0.2-1.0) 04/09/20 13:18 Ur Leukocyte Esterase Negative (NEGATIVE) 04/09/20 13:18 Syphilis Serology Non-reactive (NONREACTIVE) 04/09/20 07:25 Action: Chest x-ray ordered
[2020-04-11] MEDS ORDERED: chlordiazePOXIDE HCL 10 MG CAPSULE PO ONE (05:00)
--- NOTE | 2020-04-11 09:19 | PN ---
[facility] Progress Note Note: mr elizabeth has positive ppd [facility] not equipped for chest x ray today story writer called radiology [id number] without success called [id number] appointment for chest x ray at [facility]
[2020-04-11 09:43] VITALS: BP 127/77; PULSE 82; TEMP 98.2
--- NOTE | 2020-04-11 10:31 | PN ---
[facility] CIWA - CIWA Score Nausea/Vomitin-No Nausea/No Vomiting Muscle Tremors: None Anxiety: 1-Mildly Anxious Agitation: 0-Normal Activity Paroxysmal Sweats: No Perspiration Orientation: 0-Oriented Tacttile Disturbances: 0-None Auditory Disturbances: 0-None Visual Disturbances: 0-None Headache: 0-None Present CIWA-Ar Total Score: 1 S Progress Note (SOAP) Subjective: alert,no complaint Objective: 04/11/20 10:32 Vital Signs Temperature 98.2 F 04/11/20 09:07 Pulse Rate 82 04/11/20 09:07 Respiratory Rate 18 04/11/20 09:07 Blood Pressure 127/77 04/11/20 09:07 O2 Sat by Pulse Oximetry (%) 97 04/11/20 06:38 Assessment: 04/11/20 10:32 detox completed,no withdrawal symptom Plan: stable for discharge today,positive ppd 20 mm,will have chest x ray done at [facility],follow up with [facility] as arrangement
--- NOTE | 2020-04-11 10:35 | DS ---
[facility] Detox Discharge Summary Admission Date: 04/08/20 Discharge Date: 04/11/20 - History Present History: Alcohol Dependence Additional Comments: alert,oriented x 3 ambulation on the unit lung clear on auscultation bilaterally abdomen soft,no distension,no pain detox completed,no withdrawal symptom positive ppd 20 mm,will have chest xray done at [facility] today declined rehab follow up with after care program as arrangement [facility] total time spending on discharge 35 minutes Pertinent Past History: hypertension bph gerd - Physical Exam Results Vital Signs: Vital Signs Temperature 98.2 F 04/11/20 09:07 Pulse Rate 82 04/11/20 09:07 Respiratory Rate 18 04/11/20 09:07 Blood Pressure 127/77 04/11/20 09:07 O2 Sat by Pulse Oximetry (%) 97 04/11/20 06:38 Pertinent Admission Physical Exam Findings: withdrawal signs and symptom Laboratory Last Values Sodium 141 mmol/L (136-145) 04/09/20 07:25 Potassium 3.9 mmol/L (3.5-5.1) 04/09/20 07:25 Chloride 107 mmol/L (98-107) 04/09/20 07:25 Carbon Dioxide 24 mmol/L (21-32) 04/09/20 07:25 Anion Gap 10 MMOL/L (8-16) 04/09/20 07:25 BUN 15.4 mg/dL (7-18) 04/09/20 07:25 Creatinine 1.1 mg/dL (0.55-1.3) 04/09/20 07:25 Est GFR (CKD-EPI)AfAm 84.71 04/09/20 07:25 Est GFR (CKD-EPI)NonAf 73.09 04/09/20 07:25 Random Glucose 110 mg/dL (74-106) H 04/09/20 07:25 Calcium 8.8 mg/dL (8.5-10.1) 04/09/20 07:25 Total Bilirubin 0.4 mg/dL (0.2-1) 04/09/20 07:25 AST 22 U/L (15-37) 04/09/20 07:25 ALT 27 U/L (13-61) 04/09/20 07:25 Alkaline Phosphatase 100 U/L (45-117) 04/09/20 07:25 Total Protein 6.8 g/dl (6.4-8.2) 04/09/20 07:25 Albumin 3.4 g/dl (3.4-5.0) 04/09/20 07:25 Urine Color Dk yellow 04/09/20 13:18 Urine Appearance Clear 04/09/20 13:18 Urine pH 5.5 (5.0-8.0) 04/09/20 13:18 Ur Specific [place] 1.021 (1.010-1.035) 04/09/20 13:18 Urine Protein Negative (NEGATIVE) 04/09/20 13:18 Urine Glucose (UA) Negative (NEGATIVE) 04/09/20 13:18 Urine Ketones Trace (NEGATIVE) H 04/09/20 13:18 Urine Blood Negative (NEGATIVE) 04/09/20 13:18 Urine Nitrite Negative (NEGATIVE) 04/09/20 13:18 Urine Bilirubin Negative (NEGATIVE) 04/09/20 13:18 Urine Urobilinogen 1.0 mg/dL (0.2-1.0) 04/09/20 13:18 Ur Leukocyte Esterase Negative (NEGATIVE) 04/09/20 13:18 Syphilis Serology Non-reactive (NONREACTIVE) 04/09/20 07:25 had covid 19 test at [facility] on 04/06/20 not detected Vital Signs Temperature 98.2 F 04/11/20 09:07 Pulse Rate 82 04/11/20 09:07 Respiratory Rate 18 04/11/20 09:07 Blood Pressure 127/77 04/11/20 09:07 O2 Sat by Pulse Oximetry (%) 97 04/11/20 06:38 - Treatment Hospital Course: Detox Protocol Followed, Detoxed Safely, Responded well, Discharged Condition Good Patient has Accepted a Rehab Referral to: declined - Medication Discharge Medications: Ambulatory Orders Amlodipine Besylate 5 mg PO DAILY 04/07/20 Pantoprazole Sodium [Protonix -] 20 mg PO DAILY 04/07/20 Tamsulosin HCl [Flomax] 0.4 mg PO DAILY 04/07/20 Multivitamins [Multivit ([facility] Formulary)] 1 tab PO DAILY tab 04/08/20 - Diagnosis (1) Alcohol dependence with uncomplicated intoxication Current Visit: Yes Status: Acute (2) Alcohol dependence with intoxication Current Visit: Yes Status: Acute (3) GERD (gastroesophageal reflux disease) Current Visit: Yes Status: Acute (4) HTN (hypertension) Current Visit: Yes Status: Acute (5) BPH (benign prostatic hyperplasia) Current Visit: Yes Status: Acute (6) Nicotine dependence Current Visit: Yes Status: Acute (7) Positive PPD Current Visit: Yes Status: Acute - AMA Did Patient Leave Against Medical Advice: No
[2020-04-12] MEDS ORDERED: TAMSULOSIN HCL 0.4 MG CAP PO SCH (10:00)
[2020-04-12] MEDS ORDERED: amLODIPine BESYLATE 5 MG TABLET (FP) PO SCH (10:00)
[2020-04-12] MEDS ORDERED: PANTOPRAZOLE 20 MG TABLET PO SCH (10:00)
== END 2020-04-11 10:15 | disposition home or self-care (01) | DRG 775 ==
LOC: YASAS 18:45 → Y3N 21:47
PROVIDERS: ADMIT Allergy & Immunology; ATTEND Allergy & Immunology
PROC: HZ2ZZZZ Detoxification Services for Substance Abuse Treatment (ICD-10-PCS; principal; 2020-04-08)
DX: F10.230 Alcohol dependence with withdrawal, uncomplicated (principal); F17.210 Nicotine dependence, cigarettes, uncomplicated; E78.00 Pure hypercholesterolemia, unspecified; I10 Essential (primary) hypertension; K21.9 Gastro-esophageal reflux disease without esophagitis; N40.0 Benign prostatic hyperplasia without lower urinary tract symptoms; R76.11 Nonspecific reaction to tuberculin skin test without active tuberculosis; R22.31 Localized swelling, mass and lump, right upper limb; Z91.81 History of falling
CPT/HCPCS: 36415; 80053; 81003; 86780

== ENCOUNTER 2020-04-11 11:03 | Emergency (ER) | payer OTHER ==
[2020-04-11 11:19] VITALS: BP 139/86; PULSE 90; TEMP 98.5; BMI 29.6
--- NOTE | 2020-04-11 11:21 | PDOC ---
History of Present Illness - General Stated Complaint: PPD POSITIVE Time Seen by Provider: 04/11/20 11:15 History Source: Patient, Old Records Exam Limitations: No Limitations - History of Present Illness Initial Comments: 04/11/20 11:20 59yo M sent from [facility] for evaluation of +PPD. Patient has been d/c'd from detox and does not need to return to [facility] after evaluation. Patient denies all complaints at this time. Past History - Medical History Allergies/Adverse Reactions: Allergies Allergy/AdvReac Type Severity Reaction Status Date / Time No Known Allergies Allergy Verified 04/06/20 00:16 Home Medications: Ambulatory Orders Amlodipine Besylate 5 mg PO DAILY 04/07/20 Pantoprazole Sodium [Protonix -] 20 mg PO DAILY 04/07/20 Tamsulosin HCl [Flomax] 0.4 mg PO DAILY 04/07/20 Multivitamins [Multivit ([facility] Formulary)] 1 tab PO DAILY tab 04/08/20 Anemia: No Asthma: No Cancer: No Cardiac Disorders: No CVA: No COPD: No CHF: No Dementia: No Diabetes: No GI Disorders: No Disorders: No HTN: No Hypercholesterolemia: Yes Kidney Stones: No Liver Disease: No Seizures: No Thyroid Disease: No - Surgical History Abdominal Surgery: No Appendectomy: No Cardiac Surgery: No Cholecystectomy: No Lung Surgery: No Neurologic Surgery: No Orthopedic Surgery: No - Reproductive History Testicular Surgery: No - Psycho-Social/Smoking History Smoking History: Current every day smoker Have you smoked in the past 12 months: Yes Number of Cigarettes Smoked Daily: 5 Cigars Per Day: 0 'Breaking Loose' booklet given: 04/08/20 Review of Systems - Review of Systems Able to Perform ROS?: Yes Is the patient limited Armenian proficient: No All Other Systems: Reviewed and Negative *Physical Exam - Physical Exam General Appearance: Yes: Appropriately Dressed. No: Apparent Distress Respiratory/Chest: positive: Lungs Clear, Normal Breath Sounds. negative: Chest Tender, Respiratory Distress, Accessory Muscle Use Cardiovascular: positive: Regular Rhythm, Regular Rate. negative: Murmur Musculoskeletal: positive: Normal Inspection Extremity: positive: Normal Inspection Integumentary: positive: Normal Color, Dry, Warm, Other (2cm circular area of induration present to left forearm. No BCG scar noted.) Medical Decision Making - Medical Decision Making 04/11/20 11:19 A/P: 59yo male for evaluation of +PPD PE is unremarkable. CXR done 04/06 shows prominant jesu. No acute process. Discharge Discharge - Discharge Information Problems reviewed: Yes Clinical Impression/Diagnosis: PPD positive Condition: Stable Disposition: HOME - Admission No - Follow up/Referral - Patient Discharge Instructions Additional Instructions: Follow up with your doctor for continued evaluation. You had a Chest X-ray on 04/06 which did not show an acute lung problem. Continue all recommendations from [facility]. - Post Discharge Activity
== END 2020-04-11 11:45 | disposition home or self-care (01) ==
LOC: JER 11:03
DX: R76.11 Nonspecific reaction to tuberculin skin test without active tuberculosis (principal)
CPT/HCPCS: 99281-25